=== PATIENT | female | born 1945 | race Caucasian/White ===

== ENCOUNTER 2019-07-01 11:18 | Outpatient (CLI) | payer MEDICARE, SELFPAY ==
[2019-07-01 11:59] LABS: Add Urine Microscopic? NO; Appearance Urine Clear (Clear); Bilirubin Urine Negative (Negative); Blood Urine Negative (Negative); Color Urine Yellow (Yellow); Glucose Urine UA Negative (Negative); Ketones Urine Negative (Negative); Leukocyte Esterase Ur Negative (Negative); Nitrate Urine Negative (Negative); Protein Urine Negative (Negative); Specific Grav Ur 1.015 (1.010-1.020); Urobilinogen Urine 0.2 mg/dL (0.2-1.0); pH Urine 5.5 (5.0-8.0)
[2019-07-01 12:02] LABS: Hemoglobin A1C 6.7 % (<5.7)
[2019-07-01 12:02] LABS: Creatinine Urine 51.33 mg/dL (40-278); MALB Creatinine Ratio 12.4 mg/g (0-30); Microalbumin Urine Random 6.4 mg/L
[2019-07-01 12:59] LABS: Alanine Aminotransferase 23 U/L (14-59); Albumin Level 4.2 g/dL (3.4-5.0); Alkaline Phosphatase 66 U/L (46-116); Anion Gap 13.4 mmol/L (7-16); Aspartate Amino Transferase 17 U/L (15-37); Bilirubin,Total 0.3 mg/dL (0.00-1.00); Blood Urea Nitrogen 19 mg/dL (7-18); Calcium 9.3 mg/dL (8.5-10.1); Carbon Dioxide 29 mmol/L (21-32); Chloride 103 mmol/L (98-108); Cholesterol 161 mg/dL (0-200); Estimated Glomerular Filt Rate 52; Free T3 2.58 pg/mL (2.18-3.98); Free T4 Free Thyroxine 1.06 ng/dL (0.76-1.46); Glucose 69 mg/dL (70-99); HDL Direct 64 mg/dL (40-60); LDL Cholesterol Calculated 78 mg/dL (<130); Osmolality Calculated 292 mOsm/kg (285-295); Potassium 4.4 mmol/L (3.5-5.1); Sodium 141 mmol/L (136-145); Thyroid Stimulating Hormone 4.02 uIU/mL (0.36-3.74); Total Protein 7.1 g/dL (6.4-8.2); Triglycerides 93 mg/dL (0-150)
[2019-07-03 09:48] LABS: Vitamin D 25 Hydroxy 59 ng/mL (30-100)
== END 2019-07-01 11:19 | disposition home or self-care (01) ==
PROVIDERS: PCP Internal Medicine; Visit Provider Internal Medicine
DX: E11.65 Type 2 diabetes mellitus with hyperglycemia (principal); I10 Essential (primary) hypertension; E03.4 Atrophy of thyroid (acquired); E78.2 Mixed hyperlipidemia; M81.0 Age-related osteoporosis without current pathological fracture
CPT/HCPCS: 36415; 80053; 80061; 81003; 82043; 82306; 83036; 84439; 84443; 84481

== ENCOUNTER 2019-08-21 15:51 | Outpatient (CLI) | payer MEDICARE, SELFPAY ==
--- NOTE | ~2019-08-21 | XR_ITS ---
EXAMINATION: XR lumbar spine 2-3V EXAM DATE: 08/21/2019 16:16 INDICATION: Acute lumbar radiculopathy, pain shooting down right leg. TECHNIQUE: Lumber spine frontal, lateral, lateral L5-S1 projections for interpretation. Comparison is made to prior examination from 04/25/2018. FINDINGS: There is moderate disc disease from T11 through L2. There is 5 mm retrolisthesis L1 on L2 and 4 mm retrolisthesis T12 on L1. No spondylolysis. There is bulky lumbar facet arthropathy. Mild to moderate disc disease at L5-S1, mild from L2 through L5. Sacrum, sacroiliac joints, sacral arcuate l christina are intact. Probable mild interval progression compared to 2018. IMPRESSION: 1. Severe lumbar facet arthropathy. 2. Moderate thoracolumbar disc disease. Reviewed, dictated and finalized at location A.
== END 2019-08-21 15:52 | disposition home or self-care (01) ==
LOC: CHSIMG 15:56
PROVIDERS: PCP Internal Medicine; Visit Provider Internal Medicine
DX: M54.16 Radiculopathy, lumbar region (principal)
CPT/HCPCS: 72100

== ENCOUNTER 2019-08-31 07:42 | Outpatient (CLI) | payer MEDICARE, SELFPAY ==
--- NOTE | ~2019-08-31 | MR_ITS ---
EXAMINATION: MR lumbar spine wo con DATE: 08/31/2019 10:30 INDICATION: Lumbar radiculopathy. TECHNIQUE: Magnetic resonance imaging (MRI) of the lumbar spine was performed without intravenous con trast. Sequences included sagittal T2-weighted FSE, sagittal T2-weighted FS FSE, sagittal T1-weighted FSE, and axial T2-weighted FSE. COMPARISON: Lumbar spine radiographs 08/21/2019 FINDINGS: There is 3 mm retrolisthesis of T12 on L1, 4 mm retrolisthesis of L1 on L2, and 3 mm vivian listhesis of L3 on L4 and L4 on L5. Vertebral body heights are normal. There is severely decreased di sc height at T11-T12, moderately decreased disc height at T12-L1 and L1-L2, and mildly decreased disc height at L5-S1. The distal spinal cord signal intensity is normal. The conus medullaris is at L1-L2 . The following disc levels are specifically discussed: L1-L2: The disc is bulging and has an annular fissure. There is no facet joint osteoarthritis. There is moderate bilateral neural foraminal stenosis. There is mild central canal stenosis. L2-L3: The disc is bulging. There is no facet joint osteoarthritis. There is mild bilateral neural fo raminal stenosis. There is no central canal stenosis. L3-L4: The disc is bulging. There is severe bilateral facet joint osteoarthritis. There is mild bilat eral neural foraminal stenosis. There is moderate central canal stenosis. L4-L5: The disc is bulging. There is severe bilateral facet joint osteoarthritis. There is mild bilat eral neural foraminal stenosis. There is mild central canal stenosis. L5-S1: The disc is bulging and has an annular fissure. There is severe bilateral facet joint osteoart hritis. There is mild bilateral neural foraminal stenosis. There is no central canal stenosis. IMPRESSION: 1. Moderate lumbar spondylosis and severe lower thoracic spondylosis. Reviewed, dictated and finalized at location A.
== END 2019-08-31 07:43 | disposition home or self-care (01) ==
LOC: CHSIMG 07:44
PROVIDERS: PCP Internal Medicine; Visit Provider Internal Medicine
DX: M54.16 Radiculopathy, lumbar region (principal)
CPT/HCPCS: 72148

== ENCOUNTER 2020-01-03 10:30 | Outpatient (CLI) | payer MEDICARE, SELFPAY ==
[2020-01-03 10:43] LABS: Add Urine Microscopic? NO; Appearance Urine Clear (Clear); Bilirubin Urine Negative (Negative); Blood Urine Negative (Negative); Color Urine Yellow (Yellow); Glucose Urine UA Negative (Negative); Ketones Urine Negative (Negative); Leukocyte Esterase Ur Negative LEU/UL (Negative); Nitrate Urine Negative (Negative); Protein Urine Negative (Negative); Urobilinogen Urine 0.2 mg/dL (0.2-1.0); pH Urine 5.5 (5.0-8.0)
[2020-01-03 10:56] LABS: Hemoglobin A1C 6.7 % (<5.7)
[2020-01-03 12:01] LABS: Alanine Aminotransferase 28 U/L (14-59); Albumin Level 4.1 g/dL (3.4-5.0); Alkaline Phosphatase 61 U/L (46-116); Anion Gap 10 mmol/L (8-16); Aspartate Amino Transferase 22 U/L (15-37); Bilirubin,Total 0.5 mg/dL (0.00-1.00); Blood Urea Nitrogen 23 mg/dL (7-18); Calcium 9.6 mg/dL (8.5-10.1); Carbon Dioxide 29 mmol/L (21-32); Chloride 102 mmol/L (98-108); Cholesterol 166 mg/dL (0-200); Estimated Glomerular Filt Rate 45; Free T3 2.33 pg/mL (2.18-3.98); Free T4 Free Thyroxine 1.15 ng/dL (0.76-1.46); Glucose 148 mg/dL (70-99); HDL Direct 61 mg/dL (40-60); LDL Cholesterol Calculated 80 mg/dL (<130); Osmolality Calculated 298 mOsm/kg (285-295); Potassium 4.3 mmol/L (3.5-5.1); Sodium 141 mmol/L (136-145); Thyroid Stimulating Hormone 2.37 uIU/mL (0.36-3.74); Total Protein 7.2 g/dL (6.4-8.2); Triglycerides 123 mg/dL (0-150)
== END 2020-01-03 10:31 | disposition home or self-care (01) ==
LOC: CHSLAB 10:32
PROVIDERS: PCP Internal Medicine; Visit Provider Internal Medicine
DX: E78.2 Mixed hyperlipidemia (principal); I10 Essential (primary) hypertension; E03.4 Atrophy of thyroid (acquired); E11.65 Type 2 diabetes mellitus with hyperglycemia
CPT/HCPCS: 36415; 80053; 80061; 81003; 83036; 84439; 84443; 84481

== ENCOUNTER 2020-01-06 08:52 | Outpatient (CLI) | payer MEDICARE, SELFPAY ==
--- NOTE | ~2020-01-06 | MM_ITS ---
EXAMINATION: MM screening [facility] BI w sandrine HISTORY: Screening mammogram TECHNIQUE: Craniocaudal and mediolateral oblique 3-D tomosynthesis images were obtained and synthetic 2-D images were generated. CAD analysis was submitted and interpreted. COMPARISON: 10/01/2018, 09/21/2017, 09/19/2016 bilateral digital screening mammogram examinations BREAST PARENCHYMAL COMPOSITION: There are scattered areas of fibroglandular density. Radiology FINDINGS: Stable circumscribed appearing bilateral breast masses with calcifications, likely calcifie d fibroadenomas.. Scattered numerous bilateral benign calcifications are again noted. There is no lolly dence of suspicious mass, calcification, or architectural distortion to suggest malignancy in either breast. There has been no suspicious interval change. IMPRESSION: 1. No mammographic evidence of malignancy. 2. Recommend routine screening mammography in one year. BI-RADS Category 2: Benign finding(s). Reviewed, dictated and finalized at location A.
== END 2020-01-06 08:53 | disposition home or self-care (01) ==
LOC: CHSIMG 08:55
PROVIDERS: PCP Internal Medicine; Visit Provider Obstetrics & Gynecology Gynecology
DX: Z12.31 Encounter for screening mammogram for malignant neoplasm of breast (principal)
CPT/HCPCS: 77063; 77067

== ENCOUNTER 2020-07-21 13:25 | Outpatient (CLI) | payer MEDICARE, SELFPAY ==
[2020-07-21 13:39] LABS: Appearance Urine Sl Cloudy (Clear); Bilirubin Urine Negative (Negative); Color Urine Yellow (Yellow); Glucose Urine UA Negative (Negative); Ketones Urine Negative (Negative); Leukocyte Esterase Ur Trace (Negative); Nitrate Urine Positive (Negative); Protein Urine Negative (Negative); Specific Grav Ur >= 1.030 (1.010-1.020); Urobilinogen Urine 0.2 mg/dL (0.2-1.0); pH Urine 5.5 (5.0-8.0)
[2020-07-21 13:43] LABS: Add Urine Microscopic? YES; Blood Urine Trace-Intact (Negative); RBC Urine 0-2 /hpf (0-2)
[2020-07-21 13:44] LABS: Bacteria Urine 2+ /hpf; Squamous Epithelial Cell Urine Few /hpf (Few)
[2020-07-21 13:55] LABS: Creatinine Urine 226.18 mg/dL (40-278); MALB Creatinine Ratio 8.6 mg/g (0-30); Microalbumin Urine Random 19.6 mg/L
[2020-07-21 13:59] LABS: Hemoglobin A1C 6.7 % (<5.7)
[2020-07-21 14:31] LABS: Alanine Aminotransferase 37 U/L (14-59); Albumin Level 4.2 g/dL (3.4-5.0); Alkaline Phosphatase 61 U/L (46-116); Anion Gap 9 mmol/L (8-16); Aspartate Amino Transferase 18 U/L (15-37); Bilirubin,Total 0.4 mg/dL (0.00-1.00); Blood Urea Nitrogen 24 mg/dL (7-18); Calcium 10.2 mg/dL (8.5-10.1); Carbon Dioxide 30 mmol/L (21-32); Chloride 101 mmol/L (98-108); Cholesterol 162 mg/dL (0-200); Estimated Glomerular Filt Rate 46; Free T3 2.02 pg/mL (2.18-3.98); Free T4 Free Thyroxine 1.01 ng/dL (0.76-1.46); Glucose 145 mg/dL (70-99); HDL Direct 54 mg/dL (40-60); LDL Cholesterol Calculated 80 mg/dL (<130); Osmolality Calculated 297 mOsm/kg (285-295); Potassium 3.9 mmol/L (3.5-5.1); Sodium 140 mmol/L (136-145); Thyroid Stimulating Hormone 2.67 uIU/mL (0.36-3.74); Total Protein 7.1 g/dL (6.4-8.2); Triglycerides 138 mg/dL (0-150)
[2020-07-23 22:23] LABS: Vitamin D 25 Hydroxy 50 ng/mL (30-100)
== END 2020-07-21 13:26 | disposition home or self-care (01) ==
LOC: CHSLAB 13:28
PROVIDERS: PCP Internal Medicine; Visit Provider Internal Medicine
DX: E03.9 Hypothyroidism, unspecified (principal); E11.9 Type 2 diabetes mellitus without complications; I10 Essential (primary) hypertension; E78.2 Mixed hyperlipidemia; M81.0 Age-related osteoporosis without current pathological fracture
CPT/HCPCS: 36415; 80053; 80061; 81001; 82043; 82306; 83036; 84439; 84443; 84481

== ENCOUNTER 2021-01-06 14:11 | Outpatient (CLI) | payer MEDICARE, SELFPAY ==
--- NOTE | ~2021-01-06 | MM_ITS ---
EXAMINATION: MM screening [facility] [place] w sandrine HISTORY: Screening mammogram TECHNIQUE: Craniocaudal and mediolateral oblique 3-D tomosynthesis images were obtained and synthetic 2-D images were generated. CAD analysis was submitted and interpreted. COMPARISON: 01/06/2020, 10/01/2018, 09/21/2017 BREAST PARENCHYMAL COMPOSITION: There are scattered areas of fibroglandular density. FINDINGS: Scattered benign-appearing calcifications are present. Also seen is a stable mass in the lo wer outer right breast. There is no evidence of suspicious mass, calcification, or architectural dist ortion to suggest malignancy in either breast. There has been no suspicious interval change. IMPRESSION: 1. No mammographic evidence of malignancy. 2. Recommend routine screening mammography in one year. BI-RADS Category 2: Benign finding(s). Reviewed, dictated and finalized at location A.
== END 2021-01-06 14:12 | disposition home or self-care (01) ==
LOC: CHSIMG 14:14
PROVIDERS: PCP Internal Medicine; Visit Provider Obstetrics & Gynecology Gynecology
DX: Z12.31 Encounter for screening mammogram for malignant neoplasm of breast (principal)
CPT/HCPCS: 77063; 77067

== ENCOUNTER 2021-01-27 09:54 | Outpatient (CLI) | payer MEDICARE, SELFPAY ==
[2021-01-27 10:21] LABS: Add Urine Microscopic? NO; Appearance Urine Clear (Clear); Basophils Absolute Auto 0.04 K/mm3 (0.00-0.10); Basophils Percent Auto 0.7 % (0.0-1.0); Bilirubin Urine Negative (Negative); Blood Urine Negative (Negative); Color Urine Light Yellow (Yellow); Eosinophils Absolute Auto 0.11 K/mm3 (0.02-0.50); Eosinophils Percent Auto 1.8 % (1.0-6.0); Glucose Urine UA Negative (Negative); Hematocrit 38.1 % (35.0-42.0); Hemoglobin 12.8 g/dL (11.7-13.8); Immature Granulocyte Absolute 0.02 K/mm3 (0.00-0.00); Immature Granulocyte Percent A 0.3 % (0.0-0.0); Ketones Urine Negative (Negative); Leukocyte Esterase Ur Negative (Negative); Lymphocytes Absolute Auto 1.84 K/mm3 (1.10-4.50); Lymphocytes Percent Auto 30.2 % (18.0-42.0); Mean Corpuscular HGB Conc 33.6 g/dL (32.0-36.0); Mean Corpuscular Hemoglobin 28.4 pg (27.0-31.0); Mean Corpuscular Volume 84.5 fL (78.0-102.0); Mean Platelet Volume 10.1 fl (9.2-11.8); Monocytes Absolute Auto 0.39 K/mm3 (0.10-0.90); Monocytes Percent Auto 6.4 % (2.0-11.0); Neutrophils Absolute Auto 3.7 K/mm3 (1.7-7.2); Neutrophils Percent Auto 60.6 % (50.0-70.0); Nitrate Urine Negative (Negative); Platelet Count Result 232 K/mm3 (150-420); Protein Urine Negative (Negative); Red Blood Count 4.51 M/mm3 (4.20-5.40); Red Cell Distribution Width 13.8 % (11.6-14.4); Urobilinogen Urine 0.2 mg/dL (0.2-1.0); White Blood Count 6.1 K/mm3 (4.8-10.8)
[2021-01-27 11:00] LABS: Alanine Aminotransferase 37 U/L (14-59); Albumin Level 4.1 g/dL (3.4-5.0); Alkaline Phosphatase 66 U/L (46-116); Anion Gap 11 mmol/L (8-16); Aspartate Amino Transferase 20 U/L (15-37); Bilirubin,Total 0.4 mg/dL (0.00-1.00); Blood Urea Nitrogen 19 mg/dL (7-18); Calcium 9.4 mg/dL (8.5-10.1); Carbon Dioxide 28 mmol/L (21-32); Chloride 102 mmol/L (98-108); Cholesterol 182 mg/dL (0-200); Estimated Glomerular Filt Rate 55; Free T3 2.25 pg/mL (2.18-3.98); Free T4 Free Thyroxine 1.04 ng/dL (0.76-1.46); Glucose 154 mg/dL (70-99); HDL Direct 53 mg/dL (40-60); LDL Cholesterol Calculated 102 mg/dL (<130); Osmolality Calculated 297 mOsm/kg (285-295); Potassium 4.1 mmol/L (3.5-5.1); Sodium 141 mmol/L (136-145); Thyroid Stimulating Hormone 3.28 uIU/mL (0.36-3.74); Total Protein 6.8 g/dL (6.4-8.2); Triglycerides 133 mg/dL (0-150)
[2021-01-29 20:42] LABS: Vitamin D 25 Hydroxy 52 ng/mL (30-100)
== END 2021-01-27 09:55 | disposition home or self-care (01) ==
LOC: CHSLAB 09:56
PROVIDERS: PCP Internal Medicine; Visit Provider Internal Medicine
DX: E03.4 Atrophy of thyroid (acquired) (principal); I10 Essential (primary) hypertension; E11.9 Type 2 diabetes mellitus without complications; E78.2 Mixed hyperlipidemia; M81.0 Age-related osteoporosis without current pathological fracture; N30.00 Acute cystitis without hematuria
CPT/HCPCS: 36415; 80053; 80061; 81003; 82306; 83036; 84439; 84443; 84481; 85025; 87086; 87088; 87186

== ENCOUNTER 2021-03-10 10:53 | Outpatient (CLI) | payer MEDICARE, SELFPAY ==
--- NOTE | ~2021-03-10 | DEXA_ITS ---
Bone Density Report Name: Karen Abdi Age: 76 Sex: Female Ethnicity: White Date of : 1945 Indication: hyperparathyroidism; parental hip fracture; height loss; Referring Provider: Estella Ovalles Study: Bone densitometry was performed. Exam Date: March 10, 2021 Accession number: [id number] Bone Density: Region BMD T-score Z-score Classification AP Spine(L1, L3, L4) 1.538 4.4 6.8 Normal Femoral Neck (Left) 1.033 1.7 3.7 Normal Total Hip (Left) 1.231 2.4 4.2 Normal Femoral Neck (Right) 0.981 1.2 3.3 Normal Total Hip (Right) 1.222 2.3 4.1 Normal Femoral Neck Mean 1.007 1.4 3.5 Normal Total Hip Mean 1.227 2.3 4.1 Normal World Health Organization criteria for BMD impression classify patients as: Normal (T-score at or above -1.0), Osteopenia (T-score between -1.0 and -2.5), or Osteoporosis (T-score at or below -2.5). 10-year Fracture Risk: FRAX not reported because: All T-scores for Spine Total, Hip Total, Femoral Neck at or above -1.0 Clinical Information Provided by Patient: Parent has had a hip fracture Has used the following medications: Calcium Has the following medical conditions: Hyperparathyroidism Patient maximum height was 65 Menopause Age: 54 No regular weight bearing exercise Onset of menses at age 14 Number of children 2 Impression: The patient has normal bone mass. The patient has risk factors, including: parental hip fracture. Discussion: LOW RISK OF FRACTURE; BONE DENSITY IS WELL ABOVE THE MINIMUM DESIRABLE LEVEL AND ABOVE AVERAGE FOR AGE AND SEX AT ALL SKELETAL SITES TESTED. This person's bone density is above expected limits for age and sex. This is rarely clinically significant, but should be pursued if there are significant musculoskeletal complaints. The patient should follow a healthful lifestyle (good nutrition with adequate calcium and vitamin D, and appropriate weight-bearing exercise). Follow-Up: Consider repeating this study in 5 years or sooner if there is some new clinical indication. Reported by: Dr. Morris Andrews on 03/10/2021 11:31:00 AM. Reviewed, dictated and finalized at location A. [facility]
== END 2021-03-10 10:54 | disposition home or self-care (01) ==
LOC: CHSIMG 10:54
PROVIDERS: PCP Internal Medicine; Visit Provider Internal Medicine
DX: M81.0 Age-related osteoporosis without current pathological fracture (principal)
CPT/HCPCS: 77080

== ENCOUNTER 2021-08-17 09:49 | Outpatient (CLI) | payer MEDICARE, SELFPAY ==
[2021-08-17 10:06] LABS: Appearance Urine Sl Cloudy (Clear); Bilirubin Urine Negative (Negative); Color Urine Yellow (Yellow); Glucose Urine UA Negative (Negative); Ketones Urine Negative (Negative); Leukocyte Esterase Ur Negative (Negative); Nitrate Urine Positive (Negative); Protein Urine Negative (Negative); Specific Grav Ur 1.025 (1.010-1.020); Urobilinogen Urine 0.2 mg/dL (0.2-1.0)
[2021-08-17 10:10] LABS: Add Urine Microscopic? YES; Bacteria Urine 4+ /hpf; Blood Urine Trace-Intact (Negative); RBC Urine 0-2 /hpf (0-2); Squamous Epithelial Cell Urine Rare /hpf (Few)
[2021-08-17 10:12] LABS: Creatinine Urine 133.22 mg/dL (40-278); MALB Creatinine Ratio 9.7 mg/g (0-30); Microalbumin Urine Random < 13.0 mg/L
[2021-08-17 10:15] LABS: Hemoglobin A1C 6.8 % (<5.7)
[2021-08-17 10:51] LABS: Alanine Aminotransferase 36 U/L (14-59); Alkaline Phosphatase 57 U/L (46-116); Anion Gap 9 mmol/L (8-16); Aspartate Amino Transferase 22 U/L (15-37); Bilirubin,Total 0.4 mg/dL (0.00-1.00); Blood Urea Nitrogen 22 mg/dL (7-18); Calcium 9.3 mg/dL (8.5-10.1); Carbon Dioxide 30 mmol/L (21-32); Chloride 101 mmol/L (98-108); Cholesterol 162 mg/dL (0-200); Creatine Kinase 74 U/L (26-192); Estimated Glomerular Filt Rate 51; Free T3 2.56 pg/mL (2.18-3.98); Free T4 Free Thyroxine 0.99 ng/dL (0.76-1.46); Glucose 134 mg/dL (70-99); HDL Direct 60 mg/dL (40-60); LDL Cholesterol Calculated 71 mg/dL (<130); Osmolality Calculated 295 mOsm/kg (285-295); Potassium 4.3 mmol/L (3.5-5.1); Sodium 140 mmol/L (136-145); Thyroid Stimulating Hormone 3.77 uIU/mL (0.36-3.74); Total Protein 6.7 g/dL (6.4-8.2); Triglycerides 154 mg/dL (0-150)
[2021-08-19 15:06] LABS: Vitamin D 25 Hydroxy 53 ng/mL (30-100)
== END 2021-08-17 09:50 | disposition home or self-care (01) ==
LOC: CHSLAB 09:51
PROVIDERS: PCP Internal Medicine; Visit Provider Internal Medicine
DX: E03.4 Atrophy of thyroid (acquired) (principal); I10 Essential (primary) hypertension; E78.2 Mixed hyperlipidemia; E11.9 Type 2 diabetes mellitus without complications; M81.0 Age-related osteoporosis without current pathological fracture
CPT/HCPCS: 36415; 80053; 80061; 81001; 82043; 82306; 82550; 83036; 84439; 84443; 84481

== ENCOUNTER 2022-01-07 12:31 | Outpatient (CLI) | payer MEDICARE, SELFPAY ==
--- NOTE | ~2022-01-07 | MM_ITS ---
EXAMINATION: MM screening [facility]do BI w sandrine HISTORY: Screening mammogram TECHNIQUE: Craniocaudal and mediolateral oblique 3-D tomosynthesis images were obtained and synthetic 2-D images were generated. CAD analysis was submitted and interpreted. COMPARISON: 01/06/2021, 01/06/2020, 10/01/2018 bilateral screening mammogram examinations BREAST PARENCHYMAL COMPOSITION: There are numerous benign calcifications scattered throughout both br easts.. FINDINGS: There is no evidence of suspicious mass, calcification, or architectural distortion to sugg est malignancy in either breast. There has been no suspicious interval change. IMPRESSION: 1. No mammographic evidence of malignancy. 2. Recommend routine screening mammography in one year. BI-RADS Category 2: Benign finding(s). Reviewed, dictated and finalized at location A.
== END 2022-01-07 12:32 | disposition home or self-care (01) ==
PROVIDERS: PCP Internal Medicine; Visit Provider Internal Medicine
DX: Z12.31 Encounter for screening mammogram for malignant neoplasm of breast (principal)
CPT/HCPCS: 77063; 77067

== ENCOUNTER 2022-03-17 11:31 | Outpatient (CLI) | payer MEDICARE, SELFPAY ==
[2022-03-17 11:51] LABS: Basophils Absolute Auto 0.06 K/mm3 (0.00-0.10); Basophils Percent Auto 0.9 % (0.0-1.0); Eosinophils Absolute Auto 0.13 K/mm3 (0.02-0.50); Eosinophils Percent Auto 1.9 % (1.0-6.0); Hematocrit 40.4 % (35.0-42.0); Hemoglobin 13.5 g/dL (11.7-13.8); Immature Granulocyte Absolute 0.01 K/mm3 (0.00-0.00); Immature Granulocyte Percent A 0.1 % (0.0-0.0); Lymphocytes Percent Auto 35.8 % (18.0-42.0); Mean Corpuscular HGB Conc 33.4 g/dL (32.0-36.0); Mean Corpuscular Hemoglobin 29.2 pg (27.0-31.0); Mean Corpuscular Volume 87.4 fL (78.0-102.0); Mean Platelet Volume 9.8 fl (9.2-11.8); Neutrophils Absolute Auto 3.7 K/mm3 (1.7-7.2); Neutrophils Percent Auto 55.3 % (50.0-70.0); Platelet Count Result 280 K/mm3 (150-420); Red Blood Count 4.62 M/mm3 (4.20-5.40); Red Cell Distribution Width 13.6 % (11.6-14.4); White Blood Count 6.7 K/mm3 (4.8-10.8)
[2022-03-17 11:52] LABS: Appearance Urine Clear (Clear); Bilirubin Urine Negative (Negative); Glucose Urine UA Negative (Negative); Ketones Urine Negative (Negative); Leukocyte Esterase Ur Trace (Negative); Nitrate Urine Positive (Negative); Protein Urine Negative (Negative); Specific Grav Ur >= 1.030 (1.010-1.020); Urobilinogen Urine 0.2 mg/dL (0.2-1.0)
[2022-03-17 11:59] LABS: Microalbumin Urine Random 17.9 mg/L
[2022-03-17 12:08] LABS: Add Urine Microscopic? YES; Blood Urine Trace-Intact (Negative); Color Urine Light Yellow (Yellow)
[2022-03-17 12:10] LABS: RBC Urine None seen /hpf (0-2); Squamous Epithelial Cell Urine Few /hpf (Few)
[2022-03-17 12:11] LABS: Bacteria Urine 3+ /hpf
[2022-03-17 12:42] LABS: Hemoglobin A1C 6.7 % (<5.7)
[2022-03-17 13:15] LABS: Alanine Aminotransferase 23 U/L (14-59); Albumin Level 4.5 g/dL (3.4-5.0); Alkaline Phosphatase 75 U/L (46-116); Anion Gap 5 mmol/L (8-16); Aspartate Amino Transferase 15 U/L (15-37); Bilirubin,Total 0.5 mg/dL (0.00-1.00); Blood Urea Nitrogen 30 mg/dL (7-18); Calcium 9.8 mg/dL (8.5-10.1); Carbon Dioxide 33 mmol/L (21-32); Chloride 101 mmol/L (98-108); Cholesterol 175 mg/dL (0-200); Creatine Kinase 77 U/L (26-192); Estimated Glomerular Filt Rate 48; Free T3 2.27 pg/mL (2.18-3.98); Free T4 Free Thyroxine 1.12 ng/dL (0.76-1.46); Glucose 132 mg/dL (70-99); HDL Direct 59 mg/dL (40-60); LDL Cholesterol Calculated 86 mg/dL (<130); Osmolality Calculated 296 mOsm/kg (285-295); Potassium 5.3 mmol/L (3.5-5.1); Sodium 139 mmol/L (136-145); Thyroid Stimulating Hormone 2.66 uIU/mL (0.36-3.74); Total Protein 7.3 g/dL (6.4-8.2); Triglycerides 149 mg/dL (0-150)
== END 2022-03-17 11:32 | disposition home or self-care (01) ==
LOC: CHSLAB 11:33
PROVIDERS: PCP Internal Medicine; Visit Provider Internal Medicine
DX: E03.4 Atrophy of thyroid (acquired) (principal); I10 Essential (primary) hypertension; E78.2 Mixed hyperlipidemia; E11.65 Type 2 diabetes mellitus with hyperglycemia; M81.0 Age-related osteoporosis without current pathological fracture
CPT/HCPCS: 36415; 80053; 80061; 81001; 82043; 82550; 83036; 84439; 84443; 84481; 85025; 88112

== ENCOUNTER 2022-03-30 16:54 | Outpatient (CLI) | payer MEDICARE, SELFPAY ==
--- NOTE | ~2022-03-30 | XR_ITS ---
XR chest 2V DATE: 03/30/2022 17:24 INDICATION: Wheezing TECHNIQUE: 2 views COMPARISON: 06/07/2019 PA and lateral chest FINDINGS: Normal heart size. 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 No pulmonary infiltrate or consolidation, pleural effusion or pulmonary vascular congest ion or pneumothorax. IMPRESSION: No active cardiopulmonary disease Reviewed, dictated and finalized at location A. [employer]
== END 2022-03-30 16:55 | disposition home or self-care (01) ==
LOC: CHSIMG 16:56
PROVIDERS: PCP Internal Medicine; Visit Provider Internal Medicine
DX: R06.2 Wheezing (principal)
CPT/HCPCS: 71046

== ENCOUNTER 2022-08-15 20:57 | Observation (INO) | payer MEDICARE, SELFPAY ==
--- NOTE | ~2022-08-15 | XR_ITS ---
EXAMINATION: XR knee LT min 4V DATE: 08/15/2022 22:35 INDICATION: Left knee pain TECHNIQUE: Four views of the left knee were obtained. COMPARISON: None. FINDINGS: Alignment is normal. No fracture or osteochondral lesion. Joint spaces are normal with no e rosions. No joint effusion/synovitis. There is marked infrapatellar anterior and medial soft tissue swelling of the knee. IMPRESSION: 1. Marked soft tissue swelling without acute osseous abnormality. Reviewed, dictated and finalized at location F.
--- NOTE | ~2022-08-15 | CT_ITS ---
EXAMINATION: CT brain wo con DATE: 08/16/2022 08:01 INDICATION: Intracranial hemorrhage. Head injury. TECHNIQUE: Computed tomography (CT) of the head was performed without intravenous contrast. The mA wa s adjusted according to patient size. Iterative reconstruction technique was employed. The dose-lengt h product was 681.00 mGy-cm. COMPARISON: Head CT 08/15/2022 FINDINGS: There are scattered areas of low attenuation in the cerebral white matter. There are hyperd ensities in the sulci in the medial frontal lobes bilaterally, consistent with acute subarachnoid hem orrhage. There is no acute ischemic infarct or abnormal mass lesion. The ventricles are normal in siz e. The paranasal sinuses are clear. The mastoid air cells are normal. There is posterior superior sca lp soft tissue swelling. IMPRESSION: 1. Stable small volume of acute subarachnoid hemorrhage in the sulci of the medial frontal lobes. 2. Stable extensive nonspecific cerebral white matter disease, which likely represents chronic small vessel ischemic disease. Reviewed, dictated and finalized at location A. IMPRESSION: 1. Stable small volume of acute subarachnoid hemorrhage in the sulci of the med ial frontal lobes. 2. Stable extensive nonspecific cerebral white matter disease, which likely rep resents chronic small vessel ischemic disease.
--- NOTE | ~2022-08-15 | CT_ITS ---
EXAMINATION: CT brain wo con INDICATION: Head injury COMPARISON: None TECHNIQUE: Standard unenhanced head CT. The dose-length product (DLP) was 605.33 mGy-cm. The mA was a djusted according to patient size. Iterative reconstruction technique was employed. FINDINGS: There are two small areas of parafalcine hyperdensity. There is no acute intraparenchymal h emorrhage. No evidence of mass lesion. No evidence of acute infarction. There is moderate periventric ular and subcortical hypodensity probably related to small vessel ischemic disease. There is mild pro minence of the sulci and ventricles related to cerebral atrophy. There is no mass effect or midline s hift. The orbits and soft tissues are unremarkable. The visualized sinuses and mastoid air cells are well aerated. IMPRESSION: 1. Two small parafalcine hyperdensities which could reflect tiny subdural hematomas. 2. Age related findings. These findings were discussed with Dr. Octavio Bentley MD in the Emergency Department at 1057 hours on 08/15/2022. Reviewed, dictated and finalized at location F. IMPRESSION: 1. Two small parafalcine hyperdensities which could reflect tiny subdural hemat omas. 2. Age related findings. These findings were discussed with Dr. Octavio Bentley MD in the Emergency De partment at 1057 hours on 08/15/2022.
--- NOTE | 2022-08-15 21:27 | ED.FALL ---
HPI - Fall General Chief Complaint: Fall Stated Complaint: I fell and hit the back of my head and cut my left leg History of Present Illness HPI Narrative: 77-year-old white female was walking through a doorway, She turned, and tripped over a threshold and fell, landing on her left knee, got up, and fell backwards striking the back of her head. she had no loss of consciousness, but her friend who witnessed it reports she had her head pretty hard. she denies any confusion, headache, visual change, and pain back pain, denies any extremity pain today her left knee. Denies any shortness of breath, abdominal pain, nausea or vomiting. Related Data Home Medications Medication Instructions Recorded Confirmed aspirin 81 mg tablet,delayed 81 mg PO DAILY 07/08/19 08/15/22 release (Adult Low Dose Aspirin) bupropion HCl 150 mg 24 hr tablet, 150 mg PO DAILY 07/08/19 08/15/22 extended release citalopram 40 mg tablet 20 mg PO DAILY 07/08/19 08/15/22 glipizide 10 mg tablet 10 mg PO DAILY 07/08/19 08/15/22 levothyroxine 50 mcg tablet 50 mcg PO DAILY 07/08/19 08/15/22 losartan 100 mg tablet 100 mg PO DAILY 07/08/19 08/15/22 metformin 500 mg tablet,extended 1,000 mg PO BID 07/08/19 08/15/22 release 24 hr multivitamin 1 tablet PO DAILY 07/08/19 08/15/22 simvastatin 10 mg tablet 10 mg PO .3 times weekly 07/16/19 08/15/22 calcium carb-ergocalciferol (vit See Rx Instructions .Route .COMPLEX 08/15/22 08/15/22 D2) 500 mg (1,250 mg)-200 unit tablet omega 2-qsn-dpm-fish oil 1,000 mg 1 cap PO DAILY 08/15/22 08/15/22 (120 mg-180 mg) capsule (Fish Oil) simvastatin 10 mg tablet 10 mg PO TID 08/15/22 08/15/22 Allergies Allergy/AdvReac Type Severity Reaction Status Date / Time No Known Allergies Allergy Verified 08/15/22 21:21 Review of Systems Review of Systems: Patient denies any recent fever, chills, sore throat, cough, chest pain, shortness he shortness of breath, near-syncope or syncope. Denies any recent abdominal pain, nausea vomiting, diarrhea constipation, dysuria urgency or frequency. Review of systems is negative except as noted above in HPI [facility] Past Medical History Medical History Diabetes 1.5, managed as type 2 CUETO (dyspnea on exertion) Dyslipidemia Essential hypertension Surgical History Surgical History History of right knee joint replacement Family History Family History Mother Patient's mother is , Onset Age: 94 Family history of malignant neoplasm of thyroid, Onset Age: 72 Social History Social History Smoking status: Never smoker Exam Narrative: pleasant, smiling, good historian, engaging Const: General: healthy appearing, no acute distress and alert Nutritional Appearance: well nourished Orientation/consciousness: patient oriented x3 HENMT: Head: normal to inspection ( except at the left posterior occipital aspect there is a small abrasion,) Face and sinus: normal facial exam and sinuses nontender Mouth: Yes Normal oral and palatal mucosa present, Yes lip normal and Yes moist mucous membranes Eyes: Conjunctivae: conjunctivae normal Pupils: Equal, round and reactive pupils present EOM: EOMs intact bilaterally Neck: Neck: normal visual inspection Other: nontender, good range of motion for age Chest: Other: nontender Resp: Effort & Inspection: normal respiratory effort Auscultation: clear to auscultation bilaterally Cardio: Rate: regular rate Rhythm: regular rhythm Heart sounds: Murmur heart sound present GI: Inspection: non-distended Other: abdomen is not tender, no fashion tenderness, rebound tenderness, no masses, no organomegaly Back/Spine/Pelvis: Other: has no neck or back tenderness Skin: General skin exam: normal color Other:
[2022-08-15 21:40] VITALS: BP 133/79; PULSE 103; RESP 18; TEMP 36.8; O2SAT 96
[2022-08-16] MEDS: LACTATED RINGERS 1,000 ML 100 ML IV CONT (01:05)
--- NOTE | 2022-08-16 01:12 | PC.NURSE ---
called second for to give report, receiving nurse with another pt, will call ER when available.
--- NOTE | 2022-08-16 01:17 | PC.NURSE ---
nurse to nurse completed with ALEJO Cunningham.
[2022-08-16 01:40] VITALS: BP 129/67; PULSE 98; RESP 17; TEMP 36.5; O2SAT 95
[2022-08-16 01:44] VITALS: BMI 31.6
--- NOTE | 2022-08-16 02:51 | ADMGEN ---
This patient, Karen Abdi, was admitted to 2nd Floor Room 210-1. Patient was oriented to hospital policies and general routines including ID bracelet, bed and alarms, pain management, procedures, bathroom and other care routines, personal items, smoking policy, room service/diet, and visiting hours. Information on how to activate the Rapid Response Team has been discussed. Patient is encouraged to report perceived risks to care and to ask questions if she do not understand what she is told or what she should do.
[2022-08-16 04:00] VITALS: BP 156/72; PULSE 88; RESP 16; TEMP 36.4; O2SAT 97
[2022-08-16 08:00] VITALS: BP 135/68; PULSE 107; RESP 18; TEMP 36.1; O2SAT 94
[2022-08-16 08:25] LABS: Glucose Point of Care 100 mg/dl (65-105)
[2022-08-16 08:54] LABS: Hematocrit 33.2 % (35.0-42.0); Hemoglobin 11.4 g/dL (11.7-13.8); Mean Corpuscular HGB Conc 34.3 g/dL (32.0-36.0); Mean Corpuscular Hemoglobin 29.8 pg (27.0-31.0); Mean Corpuscular Volume 86.7 fL (78.0-102.0); Mean Platelet Volume 9.7 fl (9.2-11.8); Platelet Count Result 229 K/mm3 (150-420); Red Blood Count 3.83 M/mm3 (4.20-5.40); Red Cell Distribution Width 13.8 % (11.6-14.4); White Blood Count 8.1 K/mm3 (4.8-10.8)
[2022-08-16 09:09] LABS: Alanine Aminotransferase 27 U/L (14-59); Albumin Level 3.7 g/dL (3.4-5.0); Alkaline Phosphatase 64 U/L (46-116); Anion Gap 9 mmol/L (8-16); Aspartate Amino Transferase 22 U/L (15-37); Bilirubin,Total 0.5 mg/dL (0.00-1.00); Blood Urea Nitrogen 20 mg/dL (7-18); Calcium 8.8 mg/dL (8.5-10.1); Carbon Dioxide 30 mmol/L (21-32); Chloride 103 mmol/L (98-108); Estimated CRCL calculation 44 ml/min; Estimated Glomerular Filt Rate 56; Glucose 200 mg/dL (70-99); Osmolality Calculated 302 mOsm/kg (285-295); Potassium 4.1 mmol/L (3.5-5.1); Sodium 142 mmol/L (136-145); Total Protein 6.7 g/dL (6.4-8.2)
--- NOTE | 2022-08-16 09:53 | PM.SD2 ---
Same Day Admit/Disch: HPI History of Present Illness Chief complaint: CLOSED HEAD INJURY Narrative: Karen Abdi is a 77 year old female who presented to arm urgency department yesterday status post mechanical fall and head trauma. Patient has history of diabetes type 1 dyslipidemia hypertension hypothyroidism. According to patient she had a mechanical fall yesterday and skinned her left knee, after tempting to look at her left knee she then fell backwards and hit the back of her head. Patient does and I any loss consciousness, lightheadedness, dizziness, confusion, visual disturbance,AMS at the time the fall or currently. There was no labs drawn on admission vital signs 133/79, heart rate 103, respiratory rate 18, temperature 36.8?, sats 96% on room air, CT of the head indicates ?Two small parafalcine hyperdensities which could reflect tiny subdural hematomas. repeat CT of the head is unchanged. according to emergency room doctor neurosurgeon was called and felt that patient should be observed overnight if no change it is safe for patient to go home per ER doctor. patient will discharge home today she does not appear to be in any distress and she agrees with discharge. The patient denies SOB, CP, palpitation, extremity numbness, lightheadedness, dizziness, constipation, diarrhea, chills, or fever. patient does have a little discomfort to to the back of her head on the right side and tenderness to her left knee. [facility] Past Medical History Medical History Diabetes 1.5, managed as type 2 CUETO (dyspnea on exertion) Dyslipidemia Essential hypertension Surgical History Surgical History History of right knee joint replacement Family History Family History Mother Patient's mother is , Onset Age: 94 Family history of malignant neoplasm of thyroid, Onset Age: 72 Social History Social History Smoking packs per day: 1 Smoking cigarettes per day: 20.0 Years smoked: 30 Smoking pack-years: 30.00 Smoking status: Former smoker Tobacco type: cigarettes Alcohol intake: never Substance use: never Substance use type: does not use Lack of Transportation: No Lack of Food: Never True Current Housing: I Have Housing Concerned About Future Housing: No Difficulty Paying Gas/Electric Bills: No Difficulty Paying for Meds: No Currently Unemployed: No Education: Associate Degree Difficulty w/ Childcare or Family Care: No Spiritual care concerns: No Same Day Admit/Disch: Med Pre-admit Medications Home Medications Medication Instructions Recorded Confirmed Type aspirin 81 mg tablet,delayed 81 mg PO DAILY 07/08/19 08/15/22 History release (Adult Low Dose Aspirin) citalopram 40 mg tablet 40 mg PO DAILY 07/08/19 08/16/22 History levothyroxine 50 mcg tablet See Rx Instructions .Route .COMPLEX 07/08/19 08/16/22 History metformin 500 mg tablet,extended 1,000 mg PO BID 07/08/19 08/15/22 History release 24 hr multivitamin 1 tablet PO DAILY 07/08/19 08/15/22 History calcium carb-ergocalciferol (vit See Rx Instructions .Route .COMPLEX 08/15/22 08/15/22 History D2) 500 mg (1,250 mg)-200 unit tablet omega 1-meq-ebk-fish oil 1,000 mg 1 cap PO DAILY 08/15/22 08/15/22 History (120 mg-180 mg) capsule (Fish Oil) bupropion HCl 150 mg tablet,12 hr 150 mg PO BID 08/16/22 08/16/22 History sustained-release glipizide 10 mg tablet, extended 10 mg PO QAM 08/16/22 08/16/22 History release 24 hr losartan 100 1 tablet PO DAILY 08/16/22 08/16/22 History mg-hydrochlorothiazide 25 mg tablet Exam Narrative: GENERAL: This is a well-nourished, well-developed patient, in no apparent distress. HEAD: normocephalic, atraumatic. EYES: PERRL. Sclera clear/white. Vision is grossly int
[2022-08-16] MEDS: CITALOPRAM HYDROBROMIDE 20 MG TABLET 40 MG PO (10:19)
[2022-08-16] MEDS: buPROPion HCL SR (12 HR) 150 MG TAB PO (10:19)
[2022-08-16] MEDS: hydroCHLOROthiazide 25 MG TABLET PO (10:20)
[2022-08-16] MEDS: glipiZIDE XL 5 MG TABCR 10 MG PO (10:20)
[2022-08-16] MEDS: MULTIVITAMINS THERAPEUTIC TAB (*BKC) 1 TABLET PO (10:20)
[2022-08-16] MEDS: LOSARTAN POTASSIUM 50 MG TABLET 100 MG PO (10:20)
--- NOTE | 2022-08-16 11:00 | PC.NURSE ---
Discharge instructions reviewed with patient and son. All questions answered. Pt transported via wheelchair to front of hospital and assisted into private vehicle.
--- NOTE | 2022-08-17 12:57 | PC.NURSE ---
Pt states she received and understood her discharge instructions. Pt states her care was very good .
== END 2022-08-16 11:00 | disposition home or self-care (01) ==
LOC: CHSED 08-16 01:00 → CHS2ND 08-16 01:40
PROVIDERS: Nurse Practitioner; Admitting Provider Internal Medicine; Emergency Provider Emergency Medicine; PCP Internal Medicine; Visit Provider Internal Medicine
DX: S06.5X0A Traumatic subdural hemorrhage without loss of consciousness, initial encounter (principal); S80.02XA Contusion of left knee, initial encounter; I10 Essential (primary) hypertension; E13.9 Other specified diabetes mellitus without complications; E78.5 Hyperlipidemia, unspecified; Z96.651 Presence of right artificial knee joint; Z79.82 Long term (current) use of aspirin; W01.0XXA Fall on same level from slipping, tripping and stumbling without subsequent striking against object, initial encounter; W18.09XA Striking against other object with subsequent fall, initial encounter; Z87.891 Personal history of nicotine dependence
CPT/HCPCS: 36415; 70450; 73564; 80053; 82948; 85027; 96360; 96361; 99285; A9270; G0378; J7120

== ENCOUNTER 2022-08-23 13:53 | Outpatient (CLI) | payer MEDICARE, SELFPAY ==
--- NOTE | ~2022-08-23 | CT_ITS ---
EXAMINATION: CT brain wo con DATE: 08/23/2022 14:04 INDICATION: Traumatic subdural hemorrhage follow-up TECHNIQUE: Computed tomography (CT) of the head was performed without intravenous contrast. The mA wa s adjusted according to patient size. Iterative reconstruction technique was employed. Exam dose: 60 5.33 mGy-cm total exam DLP. COMPARISON: 08/08/2022 CDT 08/15/2022 CT brain FINDINGS: Small Small anterior parafalcine hyperdensities reported on 08/15/2022 have nearly completely resolved since 08/15/2022, consistent with small areas of hemorrhage. No intracranial mass lesion, midline shift or mass effect. There is intracranial cerebral atheroscler osis. There is nonspecific diminished attenuation of the cerebral white matter, likely due to chronic small vessel ischemic changes. No new subdural or epidural hematoma. No fracture or bone destruction of the cranial vault. The mastoid air cells and included paranasal sinuses are unremarkable. IMPRESSION: Improvement of small anterior parafalcine hyperdensities suggesting improvement of small bilateral hemorrhages Reviewed, dictated and finalized at [facility]. Reviewed, dictated and finalized at [facility]. IMPRESSION: Improvement of small anterior parafalcine hyperdensities suggestin g improvement of small bilateral hemorrhages
== END 2022-08-23 13:54 | disposition home or self-care (01) ==
LOC: CHSIMG 13:55
PROVIDERS: PCP Internal Medicine; Visit Provider Nurse Practitioner
DX: S06.5XAA Traumatic subdural hemorrhage with loss of consciousness status unknown, initial encounter (principal)
CPT/HCPCS: 70450

== ENCOUNTER 2022-10-07 11:45 | Outpatient (CLI) | payer MEDICARE, SELFPAY ==
[2022-10-07 11:59] LABS: Appearance Urine Clear (Clear); Basophils Absolute Auto 0.05 K/mm3 (0.00-0.10); Basophils Percent Auto 0.7 % (0.0-1.0); Bilirubin Urine Negative (Negative); Blood Urine Negative (Negative); Color Urine Light Yellow (Yellow); Eosinophils Absolute Auto 0.09 K/mm3 (0.02-0.50); Eosinophils Percent Auto 1.3 % (1.0-6.0); Glucose Urine UA Negative (Negative); Hematocrit 39.6 % (35.0-42.0); Hemoglobin 13.2 g/dL (11.7-13.8); Immature Granulocyte Absolute 0.02 K/mm3 (0.00-0.00); Immature Granulocyte Percent A 0.3 % (0.0-0.0); Ketones Urine Negative (Negative); Leukocyte Esterase Ur Negative (Negative); Lymphocytes Absolute Auto 2.02 K/mm3 (1.10-4.50); Mean Corpuscular HGB Conc 33.3 g/dL (32.0-36.0); Mean Corpuscular Hemoglobin 29.3 pg (27.0-31.0); Mean Platelet Volume 9.8 fl (9.2-11.8); Monocytes Absolute Auto 0.41 K/mm3 (0.10-0.90); Monocytes Percent Auto 6.1 % (2.0-11.0); Neutrophils Absolute Auto 4.2 K/mm3 (1.7-7.2); Neutrophils Percent Auto 61.6 % (50.0-70.0); Nitrate Urine Negative (Negative); Platelet Count Result 259 K/mm3 (150-420); Protein Urine Negative (Negative); Red Cell Distribution Width 13.2 % (11.6-14.4); Urobilinogen Urine 0.2 mg/dL (0.2-1.0); White Blood Count 6.7 K/mm3 (4.8-10.8); pH Urine 5.5 (5.0-8.0)
[2022-10-07 12:00] LABS: Add Urine Microscopic? NO
[2022-10-07 12:07] LABS: Creatinine Urine 54.71 mg/dL (40-278); MALB Creatinine Ratio 23.7 mg/g (0-30); Microalbumin Urine Random < 13.0 mg/L
[2022-10-07 12:16] LABS: Hemoglobin A1C 6.2 % (<5.7)
[2022-10-07 12:52] LABS: Alanine Aminotransferase 24 U/L (14-59); Alkaline Phosphatase 66 U/L (46-116); Anion Gap 9 mmol/L (8-16); Aspartate Amino Transferase 17 U/L (15-37); Bilirubin Direct 0.1 mg/dL (0-0.2); Bilirubin,Total 0.4 mg/dL (0.00-1.00); Blood Urea Nitrogen 18 mg/dL (7-18); Calcium 9.1 mg/dL (8.5-10.1); Carbon Dioxide 29 mmol/L (21-32); Chloride 102 mmol/L (98-108); Estimated Glomerular Filt Rate 52; Free T3 2.58 pg/mL (2.18-3.98); Free T4 Free Thyroxine 1.08 ng/dL (0.76-1.46); Glucose 153 mg/dL (70-99); Osmolality Calculated 294 mOsm/kg (285-295); Potassium 4.4 mmol/L (3.5-5.1); Sodium 140 mmol/L (136-145); Thyroid Stimulating Hormone 2.08 uIU/mL (0.36-3.74)
[2022-10-08 07:32] LABS: Cholesterol 201 mg/dL (0-200); HDL Direct 61 mg/dL (40-60); LDL Cholesterol Calculated 118 mg/dL (<130); Triglycerides 109 mg/dL (0-150)
== END 2022-10-07 11:46 | disposition home or self-care (01) ==
LOC: CHSLAB 11:47
PROVIDERS: PCP Internal Medicine; Visit Provider Internal Medicine
DX: E11.9 Type 2 diabetes mellitus without complications (principal); I10 Essential (primary) hypertension; E78.2 Mixed hyperlipidemia; E03.4 Atrophy of thyroid (acquired); M25.511 Pain in right shoulder
CPT/HCPCS: 36415; 80053; 80061; 81003; 82043; 82248; 83036; 84439; 84443; 84481; 85025

== ENCOUNTER 2023-04-18 10:18 | Outpatient (CLI) | payer MEDICARE, SELFPAY ==
[2023-04-18 10:38] LABS: Basophils Absolute Auto 0.05 K/mm3 (0.00-0.10); Basophils Percent Auto 0.7 % (0.0-1.0); Eosinophils Absolute Auto 0.17 K/mm3 (0.02-0.50); Eosinophils Percent Auto 2.3 % (1.0-6.0); Hematocrit 39.1 % (35.0-42.0); Hemoglobin 13.1 g/dL (11.7-13.8); Immature Granulocyte Absolute 0.03 K/mm3 (0.00-0.00); Immature Granulocyte Percent A 0.4 % (0.0-0.0); Lymphocytes Absolute Auto 2.26 K/mm3 (1.10-4.50); Mean Corpuscular HGB Conc 33.5 g/dL (32.0-36.0); Mean Corpuscular Volume 86.5 fL (78.0-102.0); Mean Platelet Volume 9.9 fl (9.2-11.8); Monocytes Absolute Auto 0.52 K/mm3 (0.10-0.90); Monocytes Percent Auto 7.1 % (2.0-11.0); Neutrophils Absolute Auto 4.3 K/mm3 (1.7-7.2); Neutrophils Percent Auto 58.5 % (50.0-70.0); Platelet Count Result 252 K/mm3 (150-420); Red Blood Count 4.52 M/mm3 (4.20-5.40); Red Cell Distribution Width 13.6 % (11.6-14.4); White Blood Count 7.3 K/mm3 (4.8-10.8)
[2023-04-18 10:39] LABS: Appearance Urine Clear (Clear); Bilirubin Urine Negative (Negative); Blood Urine Negative (Negative); Color Urine Light Yellow (Yellow); Glucose Urine UA Negative (Negative); Ketones Urine Negative (Negative); Leukocyte Esterase Ur Negative (Negative); Nitrate Urine Negative (Negative); Protein Urine Negative (Negative); Specific Grav Ur >= 1.030 (1.010-1.020); Urobilinogen Urine 0.2 mg/dL (0.2-1.0); pH Urine 5.5 (5.0-8.0)
[2023-04-18 10:40] LABS: Add Urine Microscopic? NO
[2023-04-18 10:45] LABS: Creatinine Urine 122.82 mg/dL (40-278); MALB Creatinine Ratio 10.5 mg/g (0-30); Microalbumin Urine Random < 13.0 mg/L
[2023-04-18 12:02] LABS: Alanine Aminotransferase 24 U/L (14-59); Albumin Level 3.7 g/dL (3.4-5.0); Alkaline Phosphatase 68 U/L (46-116); Anion Gap 7 mmol/L (8-16); Aspartate Amino Transferase 14 U/L (15-37); Bilirubin,Total 0.5 mg/dL (0.00-1.00); Blood Urea Nitrogen 28 mg/dL (7-18); Calcium 9.1 mg/dL (8.5-10.1); Carbon Dioxide 32 mmol/L (21-32); Chloride 103 mmol/L (98-108); Cholesterol 232 mg/dL (0-200); Creatine Kinase 61 U/L (26-192); Estimated Glomerular Filt Rate 45; Free T3 2.18 pg/mL (2.18-3.98); Glucose 136 mg/dL (70-99); HDL Direct 62 mg/dL (40-60); LDL Cholesterol Calculated 141 mg/dL (<130); Osmolality Calculated 301 mOsm/kg (285-295); Potassium 4.1 mmol/L (3.5-5.1); Sodium 142 mmol/L (136-145); Total Protein 6.9 g/dL (6.4-8.2); Triglycerides 144 mg/dL (0-150)
== END 2023-04-18 10:19 | disposition home or self-care (01) ==
PROVIDERS: PCP Internal Medicine; Visit Provider Internal Medicine
DX: E03.4 Atrophy of thyroid (acquired) (principal); I10 Essential (primary) hypertension; E78.2 Mixed hyperlipidemia; E11.9 Type 2 diabetes mellitus without complications
CPT/HCPCS: 36415; 80053; 80061; 81003; 82043; 82550; 83036; 84439; 84443; 84481; 85025

== ENCOUNTER 2023-05-04 11:30 | Outpatient (CLI) | payer MEDICARE, SELFPAY ==
--- NOTE | ~2023-05-04 | XR_ITS ---
Right Shoulder Technique: AP and scapular Y views were obtained. Clinical History: Pain Findings: No fracture or dislocation is seen. Osseous alignment is anatomic. There is advanced degene rative change of the glenohumeral joint, with joint space narrowing and large inferomedial humeral he ad osteophyte. Soft tissues are unremarkable. Impression: Advanced glenohumeral joint osteoarthritis, as detailed above. Reviewed, dictated and finalized at [facility]. ICAL OPERATIONS MANAGER Impression: Advanced glenohumeral joint osteoarthritis, as detailed above.
== END 2023-05-04 11:31 | disposition home or self-care (01) ==
LOC: CHSIMG 11:32
PROVIDERS: PCP Internal Medicine; Visit Provider Internal Medicine
DX: M25.511 Pain in right shoulder (principal); M19.011 Primary osteoarthritis, right shoulder
CPT/HCPCS: 73030

== ENCOUNTER 2023-05-24 14:48 | Outpatient (CLI) | payer MEDICARE, SELFPAY ==
--- NOTE | ~2023-05-24 | MM_ITS ---
EXAMINATION: MM screening [facility] BI w sandrine HISTORY: Screening mammogram TECHNIQUE: Craniocaudal and mediolateral oblique 3-D tomosynthesis images were obtained and synthetic 2-D images were generated. CAD analysis was submitted and interpreted. COMPARISON: 01/07/2022, 01/06/2021, 01/06/2020 BREAST PARENCHYMAL COMPOSITION: There are scattered areas of fibroglandular density. FINDINGS: RIGHT BREAST: No suspicious mass, calcification, or architectural distortion are identified to sugges t malignancy. There has been no suspicious interval change. LEFT BREAST: An asymmetry is present in the middle third of the lower breast 6 cm from the nipple on the mediolateral oblique view. IMPRESSION: 1. Left breast asymmetry. 2. Additional mammographic views and possible breast ultrasound are recommended. BI-RADS Category 0: Incomplete: Needs additional imaging evaluation. Reviewed, dictated and finalized at [facility]. INE SHOP INSTRUCTOR IMPRESSION: 1. Left breast asymmetry. 2. Additional mammographic views and possible breast ultrasound are recommended . BI-RADS Category 0: Incomplete: Needs additional imaging evaluation.
== END 2023-05-24 14:49 | disposition home or self-care (01) ==
LOC: CHSIMG 14:49
PROVIDERS: PCP Internal Medicine; Visit Provider Internal Medicine
DX: Z12.31 Encounter for screening mammogram for malignant neoplasm of breast (principal); R92.8 Other abnormal and inconclusive findings on diagnostic imaging of breast
CPT/HCPCS: 77063; 77067

== ENCOUNTER 2023-06-22 09:38 | Outpatient (CLI) | payer MEDICARE, SELFPAY ==
--- NOTE | ~2023-06-22 | MMUS_ITS ---
EXAMINATION: MM diagnostic rodo LT w sandrine, US breast LT limited HISTORY: Follow-up left breast asymmetry TECHNIQUE: Additional 3-D tomosynthesis images of the left breast were performed and synthetic 2-D im ages were generated. CAD analysis was submitted and interpreted. High resolution Limited left breast ultrasound was performed. COMPARISON: Comparison to multiple prior studies sequentially, with oldest reviewed study dated 01/05. BREAST PARENCHYMAL COMPOSITION: Not dense: There are scattered areas of fibroglandular density. FINDINGS: MAMMOGRAPHIC FINDINGS: There are no suspicious masses, calcifications or architectural distortion in the left breast to sugg est malignancy. There are benign calcifications of the left breast. ULTRASOUND: Limited left breast ultrasound: Normal heterogeneous echotexture without focal solid or cystic mass. IMPRESSION: 1. No evidence for malignancy in the left breast. 2. Routine yearly screening mammogram and regular clinical breast examination are recommended. BI-RADS Category 1: Negative Reviewed, dictated and finalized at location [facility]. TOP ANALYST IMPRESSION: 1. No evidence for malignancy in the left breast. 2. Routine yearly screening mammogram and regular clinical breast examination a re recommended. BI-RADS Category 1: Negative
== END 2023-06-22 09:39 | disposition home or self-care (01) ==
LOC: CHSIMG 09:39
PROVIDERS: PCP Internal Medicine; Visit Provider Internal Medicine
DX: R92.8 Other abnormal and inconclusive findings on diagnostic imaging of breast (principal)
CPT/HCPCS: 76642; 77061; 77065; G0279

== ENCOUNTER 2023-09-28 10:39 | Outpatient (CLI) | payer MEDICARE, SELFPAY ==
[2023-09-28 10:59] LABS: Appearance Urine Clear (Clear); Bilirubin Urine Negative (Negative); Blood Urine Negative (Negative); Color Urine Light Yellow (Yellow); Glucose Urine UA Negative (Negative); Ketones Urine Negative (Negative); Leukocyte Esterase Ur Negative (Negative); Nitrate Urine Negative (Negative); Protein Urine Negative (Negative); Urobilinogen Urine 0.2 mg/dL (0.2-1.0)
[2023-09-28 11:03] LABS: Add Urine Microscopic? NO
[2023-09-28 11:05] LABS: Creatinine Urine 87.09 mg/dL (40-278); MALB Creatinine Ratio 14.9 mg/g (0-30); Microalbumin Urine Random < 13.0 mg/L
[2023-09-28 11:06] LABS: Hemoglobin A1C 6.4 % (<5.7)
[2023-09-28 11:28] LABS: Alanine Aminotransferase 16 U/L (14-59); Albumin Level 3.8 g/dL (3.4-5.0); Alkaline Phosphatase 71 U/L (46-116); Anion Gap 8 mmol/L (4-12); Aspartate Amino Transferase 15 U/L (15-37); Bilirubin,Total 0.4 mg/dL (0.00-1.00); Blood Urea Nitrogen 20 mg/dL (7-18); Calcium 9.8 mg/dL (8.5-10.1); Carbon Dioxide 31 mmol/L (21-32); Chloride 103 mmol/L (98-108); Cholesterol 165 mg/dL (0-200); Creatine Kinase 75 U/L (26-192); Estimated Glomerular Filt Rate 49; Glucose 86 mg/dL (70-99); HDL Direct 67 mg/dL (40-60); LDL Cholesterol Calculated 83 mg/dL (<130); Osmolality Calculated 295 mOsm/kg (285-295); Potassium 4.3 mmol/L (3.5-5.1); Sodium 142 mmol/L (136-145); Total Protein 6.6 g/dL (6.4-8.2); Triglycerides 74 mg/dL (0-150)
== END 2023-09-28 10:40 | disposition home or self-care (01) ==
LOC: CHSLAB 10:42
PROVIDERS: PCP Internal Medicine; Visit Provider Internal Medicine
DX: E11.65 Type 2 diabetes mellitus with hyperglycemia (principal); I10 Essential (primary) hypertension; E78.2 Mixed hyperlipidemia
CPT/HCPCS: 36415; 80053; 80061; 81003; 82043; 82550; 83036

== ENCOUNTER 2024-02-05 09:37 | Outpatient (CLI) | payer MEDICARE, SELFPAY ==
[2024-02-05 16:51] LABS: Blood Urea Nitrogen 22 mg/dL (7-18); Calcium 9.5 mg/dL (8.5-10.1); Chloride 100 mmol/L (98-108); Estimated Glomerular Filt Rate 46; Glucose 94 mg/dL (70-99); Osmolality Calculated 291 mOsm/kg (285-295); Potassium 4.3 mmol/L (3.5-5.1); Sodium 139 mmol/L (136-145)
[2024-02-05 16:56] LABS: Anion Gap 16 mmol/L (4-12); Carbon Dioxide 23 mmol/L (21-32)
[2024-02-06 14:13] LABS: Hemoglobin A1C 5.9 % (<5.7)
== END 2024-02-05 09:38 | disposition home or self-care (01) ==
LOC: CHSLAB 09:38
PROVIDERS: PCP Internal Medicine; Visit Provider Internal Medicine
DX: E11.9 Type 2 diabetes mellitus without complications (principal)
CPT/HCPCS: 36415; 80048; 83036

== ENCOUNTER 2024-06-14 09:55 | Outpatient (CLI) | payer MEDICARE, SELFPAY ==
[2024-06-14 10:08] LABS: Hematocrit 39.5 % (35.0-42.0); Hemoglobin 13.1 g/dL (11.7-13.8); Mean Corpuscular HGB Conc 33.2 g/dL (32-36); Mean Corpuscular Hemoglobin 28.6 pg (27.0-31.0); Mean Corpuscular Volume 86.2 fL (78.0-102.0); Mean Platelet Volume 9.6 fl (9.2-11.8); Platelet Count Result 244 K/mm3 (150-420); Red Blood Count 4.58 M/mm3 (4.20-5.40); Red Cell Distribution Width 13.6 % (11.6-14.4); White Blood Count 6.7 K/mm3 (4.8-10.8)
--- OUTSIDE RECORDS SUMMARY | 2024-06-14 10:23 | XMS_ITS | Data Portability ---
Author Organization [place] [facility] [place] [employer] [facility], Main Office Address [address] [place] [address] Care Team Providers Care Online Services Manager Name Role Phone SHENG BARRY Primary Care Provider SHENG BARRY Referring Provider Assessment Encounter Date Assessment Date Assessment LastModified by Organization Details LastModified Time 02/27/2023 02/27/2023 This note is dictated and transcribed by [employer]. Clinical Provider Trainer variances may occur. Despite proofreading, typographical errors may occur. Not available 02/27/2023 12:43:44 09/04/2023 09/04/2023 This note is dictated and transcribed by [employer]. Clinical Provider Trainer variances may occur. Despite proofreading, typographical errors may occur. Occasional wrong-word or 'ytkng-h-szaw' substitutions may have occurred due to the inherent limitations of voice recording. Read the chart carefully and recognize, using context, where substitutions have occurred. Not available 09/20/2023 09:37:00 12/04/2023 12/04/2023 This note is dictated and transcribed by [employer]. Clinical Provider Trainer variances may occur. Despite proofreading, typographical errors may occur. Occasional wrong-word or 'dhhqk-p-agzz' substitutions may have occurred due to the inherent limitations of voice recording. Read the chart carefully and recognize, using context, where substitutions have occurred. Not available 12/04/2023 12:44:37 03/04/2024 03/04/2024 This note is dictated and transcribed by [employer]. Clinical Provider Trainer variances may occur. Despite proofreading, typographical errors may occur. Occasional wrong-word or 'ulyvp-h-nbia' substitutions may have occurred due to the inherent limitations of voice recording. Read the chart carefully and recognize, using context, where substitutions have occurred. [email or web address] Not available 03/04/2024 13:51:57 Plan of Treatment Reminders Order Date Submit Date Provider Last Modified By Organization Details Last Modified Time Details Appointments None record ed. Lab None record ed. Referral None record ed. Procedures None record ed. Surgeries None record ed. Imaging None record ed. Medication Orders None record ed. Patient TargetsNo targets recorded. Patient Instructions Encounter Date Encounter Id Patient Instructions Last Modified By Organization Details Last Modified Time 05/29/2023 [id number] diabetic foot care education Not available 05/29/2023 11:49:51 Reason for Referral None Reported. Problems Name Problem SNOMED Code Status Onset Date Resolution Date Notes Provider Name and Address Organization Details Recorded Time Osteoarthriti s 463406012 Active Not Available [facility] 3 20:02:57 Bunion 496991182 Active 2019 Not Available [facility] 3 20:02:57 Diabetes mellitus 06804145 Active 2019 Not Available [facility] 20:02:57 Dystrophia unguium 01272017 Active 2022 Zachary Jane DPM [address], [address], [place], [address] , [employer] 3 14:39:34 Bunion 285780650 Active 2022 Zachary Jane DPM [address], [address], [place], [address] , [employer] 4 11:49:25 Hammer toe 748403946 Active 2022 Zachary Jane DPM [address], [address], [place], [address] , [employer] 3 14:40:17 Problem Notes None recorded. Procedures Surgical History Date Name Laterality Status Provider Name and Address Organization Details Recorded Time 4 Nail Debridement completed Zachary Jane DPM [address], [address], [place], [address], [employer] 03/04/2024 13:51:46 4 Nail Debridement completed Zachary Jane DPM [address], [address], [place], [address], [employer] [facility] [employer] [facility] [facility] [employer] 12/04/2023 12:44:29 4 Nail Debridement completed Zachary Jane DPM [address], [address], [place], [address], [employer] [facility] [employer] [facility] 09/04/2023 15:17:11 4 Nail Debridement completed Zachary Jane DPM [address], [address], [place], [address], [employer] [facility] [employer] 05/29/2023 11:49:13 3 Nail Debridement completed Zachary Jane DPM [address], [address], [place], [address], [employer] [facility] [employer] [facility] [employer] 02/27/2023 12:43:07 3 Nail Debridement completed Zachary Jane DPM [address], [address], [place], [address], [employer] [facility] [facility] [employer] 11/28/2022 12:40:12 3 Nail Debridement completed Zachary Jane DPM [address], [address], [place], [address], [employer] [facility] [employer] [facility] [employer] 08/29/2022 14:35:57 Imaging Results None recorded. Procedure Notes None recorded. Medical Equipment None Reported. Allergies No known drug allergies Medications Name Sig Start Date Stop Date Status Note LastModified by Organization Details LastModified Time celecoxib 200 mg capsule 09/03 completed Not Available Not Available Not Available amoxicillin 500 mg capsule Take 1 capsule every 8 hours by oral route as directed for 3 days. 09/03 completed Not Available Not Available Not Available metformin 500 mg tablet active Not Available Not Available Not Available bupropion HCl SR 150 mg tablet,12 hr sustained-r elease active Not Available Not Available Not Available citalopram 40 mg tablet active Not Available Not Available Not Available azithromyci n 250 mg tablet 11/23 completed Not Available Not Available Not Available tizanidine 4 mg tablet 09/03 completed Not Available Not Available Not Available hydrocodone 5 mg-acetamin ophen 325 mg tablet 09/03 completed Not Available Not Available Not Available glipizide ER 10 mg tablet, extended release 24 hr active Not Available Not Available Not Available simvastatin 10 mg tablet active Not Available Not Available Not Available ciprofloxac in 500 mg tablet 09/03 completed Not Available Not Available Not Available aspirin 81 mg tablet,otto yed release Take 1 tablet every day by oral route. 2017 active Not Available Not Available Not Avai lable tramadol 50 mg tablet 09/03 completed Not Available Not Available Not Available triamcinolo ne acetonide 0.1 % topical cream 09/03 completed Not Available Not Available Not Available ketorolac 10 mg tablet 09/03 completed Not Available Not Available Not Available losartan 100 mg-hydrochl orothiazide 25 mg tablet Take 1 tablet every day by oral route. active Not Available Not Available No t Available oxycodone-a cetaminophe n 5 mg-325 mg tablet 09/03 completed Not Available Not Available Not Available dexamethaso ne 2 mg tablet 09/03 completed Not Available Not Available Not Available levothyroxi ne 50 mcg tablet active Not Available Not Available Not Available hydrochloro thiazide 25 mg tablet active Not Available Not Available No t Available mupirocin 2 % topical ointment 09/03 completed Not Available Not Available Not Available ipratropium bromide 42 mcg (0.06 %) nasal spray 09/03 completed Not Available Not Available Not Available losartan 50 mg-hydrochl orothiazide 12.5 mg tablet active Not Available Not Available Not Available losartan 100 mg tablet 09/03 completed Not Available Not Available Not Available amoxicillin 875 mg-potassiu m clavulanate 125 mg tablet TAKE 1 TABLET BY MOUTH EVERY 12 HOURS 09/03 completed Not Available Not Available Not Available enoxaparin 30 mg/0.3 mL subcutaneou s syringe 09/03 completed Not Available Not Available Not Available aspirin 09/03 completed Not Available Not Available Not Available Fish Oil 1000mg 09/03 completed Not Available Not Available Not Available Vitamin D3 09/03 completed Not Available Not Available Not Available multivitami n 2017 active Not Available Not Available Not Avai lable Calcium 500 + D 2019 active Not Available Not Available Not Avai lable Afluria Qd 2018- (36 mos up)(PF)60 mcg (15 mcg x4)/0.5 mL IM syringe ADM 0.5ML IM UTD 09/03 completed Not Available Not Available Not Available Vitals Date Recorded Heart rate Respiratory rate Oxygen saturation Oxygen saturation in Arterial blood by Pulse oximetry Systolic blood pressure Diastolic blood pressure Provider Name and Address Organization Details Last Updated DateTime 3 96 /min 14 /min 98 % 98 % 144 mm[Hg] 87 mm[Hg] Katie Calzada [employer] 3 12:36:00 Date Recorded Heart rate Respiratory rate Oxygen saturation Oxygen saturation in Arterial blood by Pulse oximetry Systolic blood pressure Diastolic blood pressure Provider Name and Address Organization Details Last Updated DateTime 4 88 /min 14 /min 98 % 98 % 124 mm[Hg] 69 mm[Hg] Katie Calzada [employer] 4 11:43:01 Date Recorded Heart rate Respiratory rate Oxygen saturation Oxygen saturation in Arterial blood by Pulse oximetry Systolic blood pressure Diastolic blood pressure Provider Name and Address Organization Details Last Updated DateTime 4 90 /min 14 /min 99 % 99 % 123 mm[Hg] 73 mm[Hg] Katie Calzada [employer] 4 11:47:48 Date Recorded Body height Body mass index (BMI) Body weight Heart rate Respiratory rate Body temperature Oxygen saturation Oxygen saturation in Arterial blood by Pulse oximetry Systolic blood pressure Diastolic blood pressure Provider Name and Address Organization Details Last Updated DateTime 4 160.02 cm 30.1 kg/m2 11585.7 g 83 /min 14 /min 97.8 [degF] 98 % 98 % 120 mm[Hg] 80 mm[Hg] Telma Solares [employer] 4 11:51:09 Date Recorded Body height Body mass index (BMI) Body weight Heart rate Respiratory rate Oxygen saturation Oxygen saturation in Arterial blood by Pulse oximetry Systolic blood pressure Diastolic blood pressure Provider Name and Address Organization Details Last Updated DateTime 160.02 cm 30.1 kg/m2 45302.7 g 89 /min 14 /min 98 % 98 % 136 mm[Hg] 69 mm[Hg] Katie Case [facility] 4 11:38:44 Social History None recorded. Functional Status None recorded. Mental Status None recorded. Family History Relationship Description Onset Age of this Age Resolved Age Notes LastModified by Organization Details LastModified Time Father Diabetes mellitus [email or web address] Not available 11/19 11:51:50 Medical History Condition Response DIABETES, TYPE Y HYPERTENSION Y HIGH CHOLESTEROL / HYPERLIPIDEMIA Y Gynecological HistoryNo gynecological history recorded. Obstetrics History GPAL:G 0 P 0 0 0 0 Past Encounters Encounter ID Performer Location Encounter Start Date Encounter Closed Date Diagnosis/Indication Diagnosis SNOMED-CT Code Diagnosis ICD10 Code Diagnosis Note [id number] [facility] [place] [address] [place] [address] 10/26/2020 00:00:00 10/27/2020 16:42:57 [id number] [facility] [place] [address] [place] [address] 09/23/2021 00:00:00 09/25/2021 12:34:01 [id number] [facility] [place] [address] [place] [address] 12/27/2021 00:00:00 12/28/2021 10:37:32 [id number] [facility] [place] [address] [place] [address] 04/04/2022 00:00:00 04/05/2022 10:53:54 [id number] Zachary Jane DPM [facility] [place] [address] [place] [address] 08/29/2022 12:30:17 08/29/2022 14:45:11 Diabetes mellitus 82316086 E11.9 Patient educated on neuropathy , diabetes, diabetic diet, and daily foot exams. Patient is to check feet daily for new wounds, blisters, redness to prevent infection and ulceration s to the feet. Patient will return to clinic in 3 months for diabetic foot workup. Dystrophia unguium 90347 009 L60.3 Nails 1 through 10 were debrided with sharp mechanical debridemen t without incident. Nails were debrided and greater than 50% length and thickness where needed. Bunion 221657402 M21.61 1 M21.612 educated on conservati ve and surgical treatments Patient elects to continue with conservati ve therapyRec ommend wide style shoes Hammer toe 018867855 M20 .41 M20.42 as above [id number] Zachary Jane DPM [facility] [place] [address] [place] [address] 11/28/2022 12:35:24 11/28/2022 14:59:58 Diabetes mellitus 26693611 E11.9 Continue diabetic control per PCPCheck feet daily for wounds infectionC ontinue supportive shoe gearFollow -up in 3 months Dystrophia unguium 00154 009 L60.3 Nails 1 through 10 were debrided with sharp mechanical debridemen t without incident. Nails were debrided and greater than 50% length and thickness where needed. [id number] Rehana Osuna [facility] [place] [address] [place] [address] 02/27/2023 12:31:40 02/28/2023 15:24:52 Diabetes mellitus 42792027 E11.9 Continue diabetic control per PCPCheck feet daily for wounds infectionC ontinue supportive shoe gearFollow -up in 3 months Dystrophia unguium 95650 009 L60.3 Nails 1 through 10 were debrided with sharp mechanical debridemen t without incident. Nails were debrided and greater than 50% length and thickness where needed. Hammer toe 538647522 M20 .41 M20.42 as above Bunion 514521917 M21.61 1 M21.612 educated on conservati ve and surgical treatments Patient elects to continue with conservati ve therapyRec ommend wide style shoes [id number] Zachary Jane DPM [facility] [place] [address] [place] [address] 05/29/2023 11:39:06 05/29/2023 11:59:23 Diabetes mellitus 72855252 E11.9 Continue diabetic control per PCPCheck feet daily for wounds infectionC ontinue supportive shoe gearFollow -up in 3 months Bunion [id number] M21.61 1 M21.612 educated on conservati ve and surgical treatments Patient elects to continue with conservati ve therapyRec ommend wide style shoes Hammer toe 267456095 M20 .41 M20.42 as above Dystrophia unguium 68268 009 L60.3 Nails were debrided without incident [id number] Zachary Jane DPM [facility] [place] [address] [place] [address] 09/04/2023 11:39:59 09/20/2023 11:12:00 Diabetes mellitus 53882335 E11.9 Continue diabetic control per PCPCheck feet daily for wounds infectionC ontinue supportive shoe gearFollow -up in 3 months Dystrophia unguium 32222 009 L60.3 Nails were debrided without incident [id number] Zachary Jane DPM [facility] [place] [address] [place] [address] 12/04/2023 11:28:33 12/06/2023 10:58:46 Diabetes mellitus 86643787 E11.9 Continue diabetic control per PCPCheck feet daily for wounds infectionC ontinue supportive shoe gearFollow -up in 3 months Dystrophia unguium 64541 009 L60.3 Nails were debrided without incident Bunion [id number] M21.61 1 M21.612 educated on conservati ve and surgical treatments Patient elects to continue with conservati ve therapyRec ommend wide style shoesdenie s surgery [id number] Zachary Jane DPM [facility] [place] [address] [place] [address] 03/04/2024 11:35:24 03/05/2024 14:44:06 Diabetes mellitus 90448532 E11.9 Continue diabetic control per PCPCheck feet daily for wounds infectionC ontinue supportive shoe gearFollow -up in 3 months Dystrophia unguium 73924 009 L60.3 Nails were debrided without incident Bunion [id number] M21.61 1 M21.612 educated on conservati ve and surgical treatments Patient elects to continue with conservati ve therapyRec ommend wide style shoesdenie s surgery Health Concerns Section Related Observation LastModified by Organization Detai ls LastModified Time None Recorded Concern Status LastModified by Organization Details LastModified Time None Recorded Advance Directives Directive None Recorded Payers Encounter Date Sequence Insurance Name Policy Number Policy Sow Covered Member ID Sow Member ID Guarantor Name 02/27/2023 1 [place] Karen J [place] [id number] Karen [place] 02/27/2023 2 [employer] CHOICE (SECONDARY TO MEDICARE) Karen [place] [id number] Karen [place] 05/29/2023 1 [place] Karen J [place] [id number] Karen [place] 05/29/2023 2 [employer] - [employer]ORS CHOICE (SECONDARY TO MEDICARE) Karen [place] [id number] Karen [place] 09/04/2023 1 [place] Karen J [place] [id number] Karen [place] 09/04/2023 2 [employer] - [employer]IORS CHOICE (SECONDARY TO MEDICARE) Karen [place] [id number] Karen [place] 12/04/2023 1 [place] Karen J [place] [id number] Karen [place] 12/04/2023 2 [employer] - [employer]IORS CHOICE (SECONDARY TO MEDICARE) Karen [place] [id number] Karen [place] 03/04/2024 1 [place] Karen J [place] [id number] 2 Karen [place] 03/04/2024 2 [employer] - [employer] CHO[employer] (SECONDARY TO MEDICARE) Karen [place] [id number] Karen [place] Notes Date Note Type Note Provider Name and Address Organization Details Recorded Time 02/27/2023 text/html . Patient is a 78-year-old female who returns the office for follow-up on diabetic foot care. Patient has bilateral bunion deformities with hammertoe deformities of the 2nd toes. Patient states overall she has been doing well denies any wounds or infection of the feet. Patient denies any intermittent claudication walking or rest pain. Patient states she is unable to bend over to cut her toenails and states they become long. Patient denies any other complaints. Not Available Not Available Not Available 05/29/2023 text/html . Patient is a 78-year-old female diabetic who returns the office for follow-up on diabetic foot care. Patient states that she continues have bunion and hammertoes of both feet which she denies any open wounds or infection. Patient does not utilize diabetic shoes or insoles with states that she has continued normal shoe gear without any difficulty. Patient states her nails are long like to have them cut. Patient states she does not have any numbness tingling or burning in the feet. Patient denies any other complaints. Zachary Jane DPM [address], [address], [place], [address], [employer] 05/29/2023 11:51:05 09/04/2023 text/html Patient is a 78-year-old female diabetic who returns to the office for diabetic foot care. Patient states that she has continued bunions and hammertoes but denies any open wounds or infection. Patient states her diabetes has been doing well. Patient denies any numbness or tingling in the feet. Patient denies any other complaints. Zachary Jane DPM [address], [address], [place], [address], [employer] 09/20/2023 09:37:18 12/04/2023 text/html . Patient is a 78-year-old female diabetic with toe deformity secondary to bunions and hammertoes. Patient states she has no open wounds or foot pain. Patient states that she is doing well she denies any recent injuries. Patient denies any fever, chills, nausea vomiting. Patient denies any numbness or tingling in the feet. Patient states her nails are long like to have them cut. Patient denies any other complaints. Zachary Jane DPM [address], [address], [place], [address], [employer] [facility] 12/04/2023 12:45:12 03/04/2024 text/html . Patient is a 79-year-old female who returns for follow-up on diabetic foot care she is doing well she denies any open wounds or infection she does have chronic bunions which she states are not painful when do not cause her any issues. Patient denies any other complaints. Zachary Jane DPM [address], [address], [place], [address], [employer] [facility] 03/04/2024 13:52:17 OBGyn Episode No OBEpisode recorded.
[2024-06-14 10:44] LABS: Hemoglobin A1C 6.4 % (<5.7)
[2024-06-14 10:52] LABS: Alanine Aminotransferase 26 U/L (14-59); Albumin Level 4.1 g/dL (3.4-5.0); Alkaline Phosphatase 61 U/L (46-116); Anion Gap 9 mmol/L (4-12); Aspartate Amino Transferase 14 U/L (15-37); Bilirubin,Total 0.5 mg/dL (0.00-1.00); Blood Urea Nitrogen 22 mg/dL (7-18); Calcium 9.5 mg/dL (8.5-10.1); Carbon Dioxide 29 mmol/L (21-32); Chloride 102 mmol/L (98-108); Cholesterol 159 mg/dL (0-200); Estimated Glomerular Filt Rate 44; Free T3 2.84 pg/mL (2.18-3.98); Free T4 Free Thyroxine 0.97 ng/dL (0.76-1.46); Glucose 108 mg/dL (70-99); HDL Direct 67 mg/dL (40-60); LDL Cholesterol Calculated 69 mg/dL (<130); Osmolality Calculated 294 mOsm/kg (285-295); Potassium 4.2 mmol/L (3.5-5.1); Sodium 140 mmol/L (136-145); Thyroid Stimulating Hormone 4.34 uIU/mL (0.36-3.74); Total Protein 6.6 g/dL (6.4-8.2); Triglycerides 113 mg/dL (0-150)
[2024-06-14 13:14] LABS: Creatinine Urine 69.78 mg/dL (40-278); MALB Creatinine Ratio 18.6 mg/g (0-30); Microalbumin Urine Random < 13.0 mg/L
[2024-06-14 13:27] LABS: Add Urine Microscopic? NO; Appearance Urine Clear (Clear); Bilirubin Urine Negative (Negative); Blood Urine Negative (Negative); Color Urine Light Yellow (Yellow); Glucose Urine UA Negative (Negative); Ketones Urine Negative (Negative); Leukocyte Esterase Ur Negative (Negative); Nitrate Urine Negative (Negative); Protein Urine Negative (Negative); Urobilinogen Urine 0.2 mg/dL (0.2-1.0); pH Urine 6.5 (5.0-8.0)
== END 2024-06-14 09:56 | disposition home or self-care (01) ==
LOC: CHSLAB 09:56
PROVIDERS: PCP Internal Medicine; Visit Provider Internal Medicine
DX: I10 Essential (primary) hypertension (principal); E78.2 Mixed hyperlipidemia; E11.65 Type 2 diabetes mellitus with hyperglycemia; E03.4 Atrophy of thyroid (acquired); N18.2 Chronic kidney disease, stage 2 (mild)
CPT/HCPCS: 36415; 80053; 80061; 81003; 82043; 83036; 84439; 84443; 84481; 85027

== ENCOUNTER 2024-07-02 14:55 | Outpatient (CLI) | payer MEDICARE, SELFPAY ==
--- NOTE | ~2024-07-02 | MM_ITS ---
EXAMINATION: MM screening rodo BI w sandrine HISTORY: Screening TECHNIQUE: Craniocaudal and mediolateral oblique 3-D tomosynthesis images were obtained and synthetic 2-D images were generated. CAD analysis was submitted and interpreted. COMPARISON: Comparison to multiple prior studies sequentially, with oldest reviewed study dated 01/06. BREAST PARENCHYMAL COMPOSITION: Not dense: There are scattered areas of fibroglandular density. FINDINGS: There is no evidence of suspicious mass, calcification, or architectural distortion to sugg est malignancy in either breast. There has been no suspicious interval change. IMPRESSION: 1. No mammographic evidence of malignancy. 2. Recommend routine screening mammography in one year. BI-RADS Category 1: Negative Reviewed, dictated and finalized at location B. E SEARCH MANAGER
--- OUTSIDE RECORDS SUMMARY | 2024-07-02 15:45 | XMS_ITS | Data Portability ---
Author Organization [place] - [facility], Main Office Address [address] [place] [address] Care Team Providers Care Steel Post Installer Supervisor Name Role Phone SHENG BARRY Primary Care Provider SHENG BARRY Referring Provider [phone] Assessment Encounter Date Assessment Date Assessment LastModified by Organization Details LastModified Time 02/27/2023 02/27/2023 This note is dictated and transcribed by [employer]. Electronics Teacher variances may occur. Despite proofreading, typographical errors may occur. Not available 02/27/2023 12:43:44 09/04/2023 09/04/2023 This note is dictated and transcribed by [employer]. Electronics Teacher variances may occur. Despite proofreading, typographical errors may occur. Occasional wrong-word or 'crshr-a-xjwk' substitutions may have occurred due to the inherent limitations of voice recording. Read the chart carefully and recognize, using context, where substitutions have occurred. Not available 09/20/2023 09:37:00 12/04/2023 12/04/2023 This note is dictated and transcribed by [employer]. Electronics Teacher variances may occur. Despite proofreading, typographical errors may occur. Occasional wrong-word or 'fbxhy-c-ugbj' substitutions may have occurred due to the inherent limitations of voice recording. Read the chart carefully and recognize, using context, where substitutions have occurred. Not available 12/04/2023 12:44:37 03/04/2024 03/04/2024 This note is dictated and transcribed by [employer]. Electronics Teacher variances may occur. Despite proofreading, typographical errors may occur. Occasional wrong-word or 'ngptl-h-rmik' substitutions may have occurred due to the inherent limitations of voice recording. Read the chart carefully and recognize, using context, where substitutions have occurred. Not available 03/04/2024 13:51:57 Plan of Treatment Reminders Order Date Submit Date Provider Last Modified By Organization Details Last Modified Time Details Appointments Establish ed Patient 15 2024 03:45P M Zachary Jane DPM Not available Not available Not available Lab None recorded. Referral None recorded. Procedures None recorded. Surgeries None recorded. Imaging None recorded. Medication Orders None recorded. Patient TargetsNo targets recorded. Patient Instructions Encounter Date Encounter Id Patient Instructions Last Modified By Organization Details Last Modified Time 05/29/2023 [id number] diabetic foot care education Not available 05/29/2023 11:49:51 Reason for Referral None Reported. Problems Name Problem SNOMED Code Status Onset Date Resolution Date Notes Provider Name and Address Organization Details Recorded Time Osteoarthriti s 667819164 Active Not Available [facility] 3 20:02:57 Bunion 198101809 Active 2019 Not Available [facility] 20:02:57 Diabetes mellitus 10074797 Active 2019 Not Available [facility] 3 20:02:57 Dystrophia unguium 49749234 Active 2022 Zachary Jane DPM [address], [address], [place], [address] , [employer] 3 14:39:34 Bunion 421567179 Active 2022 Zachary Jane DPM [address], [address], [place], [address] , [employer] 4 11:49:25 Hammer toe 017471782 Active 2022 Zachary Jane DPM [address], [address], [place], [address] , [employer] 3 14:40:17 Problem Notes None recorded. Procedures Surgical History Date Name Laterality Status Provider Name and Address Organization Details Recorded Time 4 Nail Debridement completed Zachary Jane DPM [address], [address], [place], [address], [employer] 03/04/2024 13:51:46 4 Nail Debridement completed Zachary Jane DPM [address], [address], [place], [address], [facility] [employer] [facility] 12/04/2023 12:44:29 4 Nail Debridement completed Zachary Jane DPM [address], [address], [place], [address], [employer] [facility] 09/04/2023 15:17:11 4 Nail Debridement completed Zachary Jane DPM [address], [address], [place], [address], [employer] [facility] [employer] 05/29/2023 11:49:13 3 Nail Debridement completed Zachary Jane DPM [address], [address], [place], [address], [employer] [facility] [employer] 02/27/2023 12:43:07 3 Nail Debridement completed Zachary Jane DPM [address], [address], [place], [address], [employer] [facility] [employer] 11/28/2022 12:40:12 3 Nail Debridement completed Zachary Jane DPM [address], [place], [address], [employer] [facility] [employer] 08/29/2022 14:35:57 Imaging Results None recorded. Procedure [...] Not Available Not Avai lable Afluria Qd 2019-20 (36 mos up)(PF)60 mcg (15 mcg x4)/0.5 [...] % 144 mm[Hg] 87 mm[Hg] Katie Calzada [employer] 3 12:36:00 Date Recorded Heart rate Respiratory rate Oxygen saturation Oxygen saturation in Arterial blood by Pulse oximetry Systolic blood pressure Diastolic blood pressure Provider Name and Address Organization Details Last Updated DateTime 4 88 /min 14 /min 98 % 98 % 124 mm[Hg] 69 mm[Hg] Katie Calzada [employer] 4 11:43:01 Date Recorded Heart rate Respiratory rate Oxygen saturation Oxygen saturation in Arterial blood by Pulse oximetry Systolic blood pressure Diastolic blood pressure Provider Name and Address Organization Details Last Updated DateTime 4 90 /min 14 /min 99 % 99 % 123 mm[Hg] 73 mm[Hg] Katie Calzada [employer] 4 11:47:48 Date Recorded Body height Body mass index (BMI) Body weight Heart rate Respiratory rate Body temperature Oxygen saturation Oxygen saturation in Arterial blood by Pulse oximetry Systolic blood pressure Diastolic blood pressure Provider Name and Address Organization Details Last Updated DateTime 4 160.02 cm 30.1 kg/m2 02522.7 g 83 /min 14 /min 97.8 [degF] 98 % 98 % 120 mm[Hg] 80 mm[Hg] Telma Solares [employer] 4 11:51:09 Date Recorded Body height Body mass index (BMI) Body weight Heart rate Respiratory rate Oxygen saturation Oxygen saturation in Arterial blood by Pulse oximetry Systolic blood pressure Diastolic blood pressure Provider Name and Address Organization Details Last Updated DateTime 4 160.02 cm 30.1 kg/m2 97064.7 g 89 /min 14 /min 98 % 98 % 136 mm[Hg] 69 mm[Hg] Katie Calzada [place] [facility] 4 11:38:44 Social History None recorded. Functional [...] SNOMED-CT Code Diagnosis ICD10 Code Diagnosis Note [id number] [facility] [address] [place] [address] 10/26/2020 00:00:00 10/27/2020 16:42:57 [id number] [facility] [address] [place] [address] 09/23/2021 00:00:00 09/25/2021 12:34:01 [id number] [facility] [address] [place] [address] 12/27/2021 00:00:00 12/28/2021 10:37:32 [id number] [facility] [address] [place] [address] 04/04/2022 00:00:00 04/05/2022 10:53:54 [id number] Zachary Jane DPM [facility] [address] [place] [address] 08/29/2022 12:30:17 08/29/2022 14:45:11 Diabetes mellitus 90351804 E11.9 Patient educated on neuropathy , diabetes, diabetic diet, and daily foot exams. Patient is to check feet daily for new wounds, blisters, redness to prevent infection and ulceration s to the feet. Patient will return to clinic in 3 months for diabetic foot workup. Dystzaneia unguium 73237 009 L60.3 Nails 1 through 10 were debrided with sharp mechanical debridemen t without incident. Nails were debrided and greater than 50% length and thickness where needed. Bunion 122556858 M21.61 1 M21.612 educated on conservati ve and surgical treatments Patient elects to continue with conservati ve therapyRec ommend wide style shoes Hammer toe 816414057 M20 .41 M20.42 as above [id number] Zachary Jane DPM [facility] [address] [place] [address] 11/28/2022 12:35:24 11/28/2022 14:59:58 Diabetes mellitus 62481535 E11.9 Continue diabetic control per PCPCheck feet daily for wounds infectionC ontinue supportive shoe gearFollow -up in 3 months Dystrophia unguium 53475 009 L60.3 Nails 1 through 10 were debrided with sharp mechanical debridemen t without incident. Nails were debrided and greater than 50% length and thickness where needed. [id number] Rehana Enrrique [facility] [address] [place] [address] 02/27/2023 12:31:40 02/28/2023 15:24:52 Diabetes mellitus 51585135 E11.9 Continue diabetic control per PCPCheck feet daily for wounds infectionC ontinue supportive shoe gearFollow -up in 3 months Dystrophia unguium 48490 009 L60.3 Nails 1 through 10 were debrided with sharp mechanical debridemen t without incident. Nails were debrided and greater than 50% length and thickness where needed. Hammer toe 213449537 M20 .41 M20.42 as above Bunion 985833358 M21.61 1 M21.612 educated on conservati ve and surgical treatments Patient elects to continue with conservati ve therapyRec ommend wide style shoes [id number] Zachary Jane DPM [facility] [address] [place] [address] 05/29/2023 11:39:06 05/29/2023 11:59:23 Diabetes mellitus 62338476 E11.9 Continue diabetic control per PCPCheck feet daily for wounds infectionC ontinue supportive shoe gearFollow -up in 3 months Bunion 865101537 M21.61 1 M21.612 educated on conservati ve and surgical treatments Patient elects to continue with conservati ve therapyRec ommend wide style shoes Hammer toe 552680100 M20 .41 M20.42 as above Dystrophia unguium 59867 009 L60.3 Nails were debrided without incident [id number] Zachary Jane DPM [facility] [address] [place] [address] 09/04/2023 11:39:59 09/20/2023 11:12:00 Diabetes mellitus 81565273 E11.9 Continue diabetic control per PCPCheck feet daily for wounds infectionC ontinue supportive shoe gearFollow -up in 3 months Dystrophia unguium 77093 009 L60.3 Nails were debrided without incident [id number] Zachary Jane DPM [facility] [address] [place] [address] 12/04/2023 11:28:33 12/06/2023 10:58:46 Diabetes mellitus 63619620 E11.9 Continue diabetic control per PCPCheck feet daily for wounds infectionC ontinue supportive shoe gearFollow -up in 3 months Dystrophia unguium 08988 009 L60.3 Nails were debrided without incident Bunion 593300439 M21.61 1 M21.612 educated on conservati ve and surgical treatments Patient elects to continue with conservati ve therapyRec ommend wide style shoesdenie s surgery [id number] Zachary Jane DPM [facility] [address] [place] [address] 03/04/2024 11:35:24 03/05/2024 14:44:06 Diabetes mellitus 86676812 E11.9 Continue diabetic control per PCPCheck feet daily for wounds infectionC ontinue supportive shoe gearFollow -up in 3 months Dystrophia unguium 59552 009 L60.3 Nails were debrided without incident Bunion 643983562 M21.61 1 M21.612 educated on conservati ve [...] Guarantor Name 02/27/2023 1 [place] Karen [place] [id number] 2 Karen [place] 02/27/2023 2 [employer] - SENIORS CHOICE (SECONDARY TO MEDICARE) Karen [place] [id number] Karen [place] 05/29/2023 1 [place] Karen [place] [id number] 2 Karen [place] 05/29/2023 2 [employer] - SENIORS CHOICE (SECONDARY TO MEDICARE) Karen [place] [id number] Karen [place] 09/04/2023 1 [place] Karen [place] [id number] 2 Karen [place] 09/04/2023 2 [employer] - SENIORS CHOICE (SECONDARY TO MEDICARE) Karen [place] [id number] Karen [place] 12/04/2023 1 [place] Karen Graham [place] [id number] 2 Karen [place] 12/04/2023 2 [employer] - SENIORS CHOICE (SECONDARY TO MEDICARE) Karen [place] [id number] Karen [place] 03/04/2024 1 [place] Karen [place] [id number] 2 Karen [place] 03/04/2024 2 [employer] - SENIORS CHOICE (SECONDARY TO MEDICARE) Karen [place] [id number] Karen [place] Notes Date Note Type Note Provider Name [...] any other complaints. Zachary Jane DPM [address], [place], [address], [employer] 05/29/2023 11:51:05 09/04/2023 text/html Patient is a 78-year-old female diabetic who returns to the office for diabetic foot care. Patient states that she has continued bunions and hammertoes but denies any open wounds or infection. Patient states her diabetes has been doing well. Patient denies any numbness or tingling in the feet. Patient denies any other complaints. Zachary Jane DPM [address], [address], [place], [address], [employer] 09/20/2023 09:37:18 12/04/2023 text/html . Patient is [...] Jane DPM [address], [place], [address], [employer] [facility] 12/04/2023 12:45:12 03/04/2024 text/html . Patient is a 79-year-old female who returns for follow-up on diabetic foot care she is doing well she denies any open wounds or infection she does have chronic bunions which she states are not painful when do not cause her any issues. Patient denies any other complaints. Zachary Jane DPM [address], [place], [address], [employer] 03/04/2024 13:52:17 OBGyn Episode No OBEpisode recorded.
--- OUTSIDE RECORDS SUMMARY | 2024-07-02 15:45 | XMS_ITS | Clinical Summary ---
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 Gender Identity Not on file Sexual Orientation Not on file Plan of Treatment Health Maintenance Due Date Last Done Comments Hepatitis C 01/26/1964 DTaP, Tdap and Td Vaccines ( 1 - Tdap) 1965 Zoster Vaccines (1 of 2) 01/26/1996 Annual Medicare Wellness Visit 2011 Dexa Scan (General) 2011 Pneumococcal Vaccine: 65+ Ye ars (1 of 1 - PCV) 2011 RSV Immunization or 60+ Years (1 - 1-dose 75+ series) 2021 COVID-19 Vaccine ( - 2023-2 5 season) 2024 Influenza Adult (#1) 2024 Meningococcal B Vaccine Aged Out No l onger eligible based on patient's age to complete this topic Meningococcal Vaccine Aged Out No harinder arnulfo eligible based on patient's age to complete this topic RSV Immunizations Under 20 Months Aged Out No longer eligible based on patient's age to complete this topic Insurance [facility] MEDICARE
--- OUTSIDE RECORDS SUMMARY | 2024-07-02 15:45 | XMS_ITS | Continuity of Care Document ---
Author Organization [facility] Address [address] [place] [address] [address] [place] [address] Phone Care Team Providers Care Sanitary Chemist Name Role Phone Morris Jacob Unavailable Unavailable Procedures Procedure Date Eye Exam Established Pt Eye Exam Established Pt Office/outpatient Visit, Est Advance Directives Directive Yes / No Effective Date File Name No Information Encounters Encounter Description Practice Location Reason(s) For Visit Diagnoses Date Provider Providers Copied on Encounter [facility], [address] [place] [address] [address], [place], [place], [id number], [place] tel:[phone] [facility] No Information 8 8 Nidia Caceres. [address] [place], [place], [facility], . tel:[phone] Referring Provider: Morris [place], [address] [place], [place], [facility]. tel:[phone] [facility], [address] [place] [address] [address], [place], [place], [id number], [place] tel:[phone] [facility] No Information 9-200 8 Ana Maria Muller. [address], [place], [place], [facility], [place]. tel:[phone] Office/outpat ient Visit, Est [facility], [address] [place] [address] [address], [place], [place], [id number], [place] tel:[phone] [facility] No Information 7 Nidia Caceres. [address] [place], [address], [place]. tel:[phone] Family History Family Member Type Diagnosis Age At Onset No Information Payers Payer name Insurance type Covered alliance party ID Ayaka matute(s) [facility] Commercial CI [id number] Social History Type Description Quantity Date Captured [...]
== END 2024-07-02 14:56 | disposition home or self-care (01) ==
LOC: CHSIMG 14:56
PROVIDERS: PCP Internal Medicine; Visit Provider Internal Medicine
DX: Z12.31 Encounter for screening mammogram for malignant neoplasm of breast (principal)
CPT/HCPCS: 77063; 77067

== ENCOUNTER 2024-07-15 13:57 | Outpatient (CLI) | payer MEDICARE, SELFPAY ==
--- NOTE | ~2024-07-15 | XR_ITS ---
Lumbosacral Spine: AP and lateral views Clinical History: Pain COMPARISON: 08/21/2019 Findings: The normal lordotic curve is maintained. There is grade 1 retrolisthesis of L1 over L2. The re is grade 1 anterolisthesis of L5 over S1. There is severe, diffuse facet arthropathy throughout th e lumbar spine, similar to prior exam. There is advanced degenerative disc narrowing at L1-L2. There is minimal degenerative change at the remaining lumbar levels. The sacroiliac joints are normally out lined. Impression: Advanced spondylosis overall, as detailed above, with extensive facet arthropathy. Grade 1 anterolisthesis of L1 over L2. Grade 1 anterolisthesis of L5 over S1. Reviewed, dictated and finalized at location . 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 Grade 1 anterolisthesis of L1 over L2. Grade 1 anterolisthesis of L5 over S1.
--- OUTSIDE RECORDS SUMMARY | 2024-07-15 16:09 | XMS_ITS | Continuity of Care Document ---
Author Organization [facility] Address [address] [place] [address] [address] [place] [address] Phone Care Team Providers Care Stereotype Caster Name Role Phone Morris Jacob Unavailable Unavailable Procedures Procedure Date Eye Exam Established Pt Eye Exam Established Pt Office/outpatient Visit, Est Advance Directives Directive Yes / No Effective Date File Name No Information Encounters Encounter Description Practice Location Reason(s) For Visit Diagnoses Date Provider Providers Copied on Encounter [facility], [address] [place] [address] [address], [place], [place], [id number], [place] tel:[phone] SEC [facility] No Information 8 8 Nidia Caceres. [address] [place], [place], [facility], . tel:[phone] Referring Provider: Morris [place], [address] [place], [place], [facility]. tel:[phone] [facility], [address] [place] [address] [address], [place], [place], [id number], [place] tel:[phone] SEC [facility] No Information 9-200 8 Ana Maria Muller. [address], [place], [place], [facility], [place]. tel:[phone] Office/outpat ient Visit, Est [facility], [address] [place] [address] [address], [place], [place], [id number], [place] tel:[phone] SEC [facility] No Information 7 Nidia Caceres. [address] [place], [address], [place]. tel:[phone] Family History Family Member Type Diagnosis Age At Onset No Information Payers Payer name Insurance type Covered alliance party ID Ayaka matute(s) [facility] Commercial CI [id number] Social History Type Description Quantity Date Captured [...]
--- OUTSIDE RECORDS SUMMARY | 2024-07-15 16:09 | XMS_ITS | Clinical Summary ---
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
== END 2024-07-15 13:58 | disposition home or self-care (01) ==
LOC: CHSIMG 13:58
PROVIDERS: PCP Internal Medicine; Visit Provider Nurse Practitioner Family
DX: M54.50 Low back pain, unspecified (principal); M43.06 Spondylolysis, lumbar region
CPT/HCPCS: 72100

== ENCOUNTER 2024-07-19 09:25 | Outpatient (RCR) | payer MEDICARE, SELFPAY ==
--- NOTE | 2024-08-01 07:57 | OPREHPOC ---
Outpatient Therapy Plan of Care This is a Multidisciplinary Plan of Care that may contain components documented by all disciplines (PT, OT, and ST.) PT Problem 1 PT Problem #1 Knowledge Deficit PT Goal 1 Goal / Goal Update 1. independent and compliant with HEP Target Visit 2 PT Problem 2 PT Problem #2 Pain PT Goal 1 Goal / Goal Update 1. patient to maintain no pain in the lower back for the next 2 weeks Target Visit 2
--- NOTE | 2024-08-01 07:57 | PTOPEVAL1 ---
Assessment and note entered by JT File, PT Evaluation Information Assessment Status Evaluation ICD-10 Condition Codes (PT) Pain in low back M54.50 Onset 07/06/24 Subjective Information patient reports she had a flare up of pain in the lower back about a week or two ago. she reports she woke up with pain, but does not recall any injury. she is feeling much better now after having been on an oral steroid for about 4 days. she reports when her pain began, she had pain all the time with any movement. she reports she feels fine now. Assessment PT Clinical Summary mrs. dsouza is a 79 yo woman who presents to skilled PT services for evaluation and treatment of acute lower back pain. she presents today with resolution of all symptoms from her medications. she does display weakness of the LE's, decreased lumbar rom, and mm tightness in the hips. she likely had an acute flare up of DDD. given she is now symptom free, she will follow up with PT just once more to evaluate if any symptoms have returned or if there is a need for continued therapy after that. Plan of Care Interventions Gait Training,Manual Therapy,Neuro Re-education, Patient/Caregiver Education,Therapeutic Activities ,Therapeutic Exercise PT Services Indicated Yes Treatment Frequency and 1x follow up in 2 weeks Duration These treatments will address the objective and functional deficits as defined above. The patient will be advanced safely and appropriately in order for the patient to progress towards his/her prior level of function. Additional exercises will be introduced and as well as a comprehensive home exercise program upon discharge, if needed, ?to ensure carryover of functional gains achieved in the clinic. This treatment plan has been reviewed and agreement upon by the patient.
--- NOTE | 2024-08-02 10:00 | OPREHPOC ---
Outpatient Therapy Plan of Care This is a Multidisciplinary Plan of Care that may contain components documented by all disciplines (PT, OT, and ST.) PT Problem 1 PT Problem #1 Knowledge Deficit PT Goal 1 Goal / Goal Update 1. independent and compliant with HEP Target Visit 2 Progress Met PT Problem 2 PT Problem #2 Pain PT Goal 1 Goal / Goal Update 1. patient to maintain no pain in the lower back for the next 2 weeks Target Visit 2 Progress Met
--- NOTE | 2024-08-02 10:00 | PTOPDC ---
Assessment and note entered by JT File, PT Evaluation Information Assessment Status Discharge ICD-10 Condition Codes (PT) Pain in low back M54.50 Onset 07/06/24 Subjective Information patient reports she feels Great today. she reports she has had no pain in the last 2 weeks. she reports she has been compliant with her exercises at home, but still has to work on the squat mechanics. Reported Pain Level Pain Score 0: Self Report Assessment PT Clinical Summary mrs. dsouza presents to skilled PT 2 weeks after her initial evaluation. she continues to have no pain, and displays slight rom improvements and full strength of the LE's. she has met all goals for skilled PT, and does not need to continue at this time. she will DC skilled PT today, and continue with HEP independent at home. Plan of Care PT Services Indicated Yes
== END 2024-08-02 10:21 | disposition home or self-care (01) ==
LOC: CHSPT 09:25
PROVIDERS: PCP Internal Medicine; Visit Provider Nurse Practitioner Family
DX: M54.50 Low back pain, unspecified (principal)
CPT/HCPCS: 97110; 97161

== ENCOUNTER 2024-10-10 11:33 | Outpatient (CLI) | payer MEDICARE, SELFPAY ==
--- OUTSIDE RECORDS SUMMARY | 2024-10-10 11:38 | XMS_ITS | Continuity of Care Document ---
Author Organization [facility] Address [address] [place] [address] [address] [place] [address] Phone Care Team Providers Care Pharmaceutical Operator Name Role Phone Morris Jacob Unavailable Unavailable Procedures Procedure Date Eye Exam Established Pt Eye Exam Established Pt Office/outpatient Visit, Est Advance Directives Directive Yes / No Effective Date File Name No Information Encounters Encounter Description Practice Location Reason(s) For Visit Diagnoses Date Provider Providers Copied on Encounter [facility], [address] [place] [address] [address], [place], [place], [id number], [place] tel:[phone] SEC [facility] No Information 8 8 Nidia Caceres. [address] [place], [place], [facility], . tel:[phone] Referring Provider: Morris Hampton, [address] [place], [place], [facility]. tel:[phone] [facility], [address] [place] [address] [address], [place], [place], [id number], [place] tel:[phone] SEC [facility] No Information 9-200 8 Ana Maria Muller. [address], [place], [place], [facility], [place]. tel:[phone] Office/outpat ient Visit, Est [facility], [address] [place] [address] [address], [place], [place], [address], [place] tel:[phone] SEC [facility] No Information 7 Nidia Caceres. [address] [place], [address], [place]. tel:[phone] Family History Family Member Type Diagnosis Age At Onset No Information Payers Payer name Insurance type Covered constitution party ID Ayaka matute(s) [facility] Commercial CI [id number] Social History Type Description Quantity Date Captured [...]
--- OUTSIDE RECORDS SUMMARY | 2024-10-10 11:38 | XMS_ITS | Data Portability ---
Author Organization [place] [facility], Main Office Address [address] [place] [address] Care Team Providers Care Store Worker Name Role Phone SHENG BARRY Primary Care Provider [phone] SHENG BARRY Referring Provider [phone] Assessment Encounter Date Assessment Date Assessment LastModified by Organization Details LastModified Time 09/04/2023 09/04/2023 This note is dictated and transcribed by [employer]. Associate Media Director variances may occur. Despite proofreading, typographical errors may occur. Occasional wrong-word or 'dkvys-n-mckq' substitutions may have occurred due to the inherent limitations of voice recording. Read the chart carefully and recognize, using context, where substitutions have occurred. Not available 09/20/2023 09:37:00 12/04/2023 12/04/2023 This note is dictated and transcribed by [employer]. Associate Media Director variances may occur. Despite proofreading, typographical errors may occur. Occasional wrong-word or 'gnhnm-u-besx' substitutions may have occurred due to the inherent limitations of voice recording. Read the chart carefully and recognize, using context, where substitutions have occurred. Not available 12/04/2023 12:44:37 03/04/2024 03/04/2024 This note is dictated and transcribed by [employer]. Associate Media Director variances may occur. Despite proofreading, typographical errors may occur. Occasional wrong-word or 'spezq-b-qnez' substitutions may have occurred due to the inherent limitations of voice recording. Read the chart carefully and recognize, using context, where substitutions have occurred. Not available 03/04/2024 13:51:57 07/04/2024 07/04/2024 This note is dictated and transcribed by [employer]. Associate Media Director variances may occur. Despite proofreading, typographical errors may occur. Occasional wrong-word or 'totdb-u-sbht' substitutions may have occurred due to the inherent limitations of voice recording. Read the chart carefully and recognize, using context, where substitutions have occurred. [email or web address] Not available 07/04/2024 18:08:13 09/30/2024 09/30/2024 This note is dictated and transcribed by [employer]. Associate Media Director variances may occur. Despite proofreading, typographical errors may occur. Occasional wrong-word or 'pgcky-c-ljjc' substitutions may have occurred due to the inherent limitations of voice recording. Read the chart carefully and recognize, using context, where substitutions have occurred. Not available 09/30/2024 15:39:00 Plan of Treatment Reminders Order Date Submit Date Provider Last Modified By Organization Details Last Modified Time Details Appointments Establish ed Patient 15 2024 11:15A M Zachary Jane DPM Not available Not available Not available Lab None recorded. Referral None recorded. Procedures None recorded. Surgeries None recorded. Imaging None recorded. Medication Orders None recorded. Patient TargetsNo targets recorded. Patient InstructionsNo instructions recorded. Reason for Referral None Reported. Problems Name Problem SNOMED Code Status Onset Date Resolution Date Notes Provider Name and Address Organization Details Recorded Time Osteoarthriti s 692268271 Active Not Available [facility] 3 20:02:57 Bunion 849355519 Active 2019 Not Available [facility] 3 20:02:57 Diabetes mellitus 36774731 Active 2019 Not Available [facility] 3 20:02:57 Dystrophia unguium 42271435 Active 2022 Zachary Jane DPM [address], [address], [place], [address] , [facility] [employer] 3 14:39:34 Bunion 347744488 Active 2022 Zachary Jane DPM [address], [address], [place], [address] , [facility] [employer] 4 11:49:25 Hammer toe 833545427 Active 2022 Zachary Jane DPM [address], [address], [place], [address] , [facility] [employer] 3 14:40:17 Problem Notes None recorded. Procedures Surgical History Date Name Laterality Status Provider Name and Address Organization Details Recorded Time 4 Nail Debridement completed Zachary Jane DPM [address], [address], [place], [address], [employer] 03/04/2024 13:51:46 4 Nail Debridement completed Zachary Jane DPM [address], [address], [place], [address], [employer] [facility] [employer] 12/04/2023 12:44:29 4 Nail Debridement completed Zachary Jane DPM [address], [address], [place], [address], [employer] [place] [employer] 09/04/2023 15:17:11 4 Nail Debridement completed Zachary Jane DPM [address], [address], [place], [address], [employer] [facility] 05/29/2023 11:49:13 3 Nail Debridement completed Zachary Jane DPM [address], [address], [place], [address], [employer] [facility] 02/27/2023 12:43:07 3 Nail Debridement completed Zachary Jane DPM [address], [address], [place], [address], [employer] [facility] 11/28/2022 12:40:12 3 Nail Debridement completed Zachary Jane DPM [address], [address], [place], [address], [employer] 08/29/2022 14:35:57 Imaging Results None recorded. Procedure [...] Available Not Available Not Available amoxicillin 875 mg-j luismagdy chase clavulanate 125 mg tablet TAKE 1 TABLET [...] % 123 mm[Hg] 73 mm[Hg] Katie Calzada [place] [employer] 4 11:47:48 Date Recorded Body height Body mass index (BMI) Body weight Heart rate Respiratory rate Body temperature Oxygen saturation Oxygen saturation in Arterial blood by Pulse oximetry Systolic blood pressure Diastolic blood pressure Provider Name and Address Organization Details Last Updated DateTime 4 160.02 cm 30.1 kg/m2 95304.7 g 83 /min 14 /min 97.8 [degF] 98 % 98 % 120 mm[Hg] 80 mm[Hg] Telma Solares [employer] 4 11:51:09 Date Recorded Body height Body mass index (BMI) Body weight Heart rate Respiratory rate Oxygen saturation Oxygen saturation in Arterial blood by Pulse oximetry Systolic blood pressure Diastolic blood pressure Provider Name and Address Organization Details Last Updated DateTime 4 160.02 cm 30.1 kg/m2 43899.7 g 89 /min 14 /min 98 % 98 % 136 mm[Hg] 69 mm[Hg] Katie Case [facility] [place] [facility] 4 11:38:44 Date Recorded Body height Body mass index (BMI) Body weight Heart rate Respiratory rate Oxygen saturation Oxygen saturation in Arterial blood by Pulse oximetry Systolic blood pressure Diastolic blood pressure Provider Name and Address Organization Details Last Updated DateTime 5 160.02 cm 30.1 kg/m2 30649.7 g 99 /min 14 /min 98 % 98 % 100 mm[Hg] 63 mm[Hg] Katie Calzada [facility] [employer] [facility] 5 17:15:35 Date Recorded Body height Body mass index (BMI) Body weight Heart rate Respiratory rate Oxygen saturation Oxygen saturation in Arterial blood by Pulse oximetry Systolic blood pressure Diastolic blood pressure Provider Name and Address Organization Details Last Updated DateTime 5 160.02 cm 30.1 kg/m2 90039.7 g 92 /min 14 /min 98 % 98 % 148 mm[Hg] 76 mm[Hg] Katie Calzada [facility] [employer] [facility] 5 14:50:06 Social History None recorded. Functional Status None recorded. Mental Status None recorded. Family History Relationship Description Onset Age of this Age Resolved Age Notes LastModified by Organization Details LastModified Time Father Diabetes mellitus [email or web address] Not available 11/19 11:51:50 Medical History Condition Response DIABETES, TYPE Y HYPERTENSION Y HIGH CHOLESTEROL / HYPERLIPIDEMIA Y Gynecological HistoryNo gynecological history recorded. Obstetrics History GPAL:G 0 P 0 0 0 0 Past Encounters Encounter ID Performer Location Encounter Start Date Encounter Closed Date Diagnosis/Indication Diagnosis SNOMED-CT Code Diagnosis ICD10 Code Diagnosis Note [id number] [facility] [place] [address] [place] [address] 10/26/2020 00:00:00 10/27/2020 16:42:57 [id number] [facility] [place] [address] [place] [address] 09/23/2021 00:00:00 09/25/2021 12:34:01 [id number] [facility] [place] [address] [place] [address] 12/27/2021 00:00:00 12/28/2021 10:37:32 [id number] [facility] Pod[facility] [place] [address] [place] [address] 04/04/2022 00:00:00 04/05/2022 10:53:54 [id number] Zachary Jane DPM [facility] [place] [address] [place] [address] 08/29/2022 12:30:17 08/29/2022 14:45:11 Diabetes mellitus 89612830 E11.9 Patient educated on neuropathy , diabetes, diabetic diet, and daily foot exams. Patient is to check feet daily for new wounds, blisters, redness to prevent infection and ulceration s to the feet. Patient will return to clinic in 3 months for diabetic foot workup. Dystrophia unguium 45074 009 L60.3 Nails 1 through 10 were debrided with sharp mechanical debridemen t without incident. Nails were debrided and greater than 50% length and thickness where needed. Bunion 724701804 M21.61 1 M21.612 educated on conservati ve and surgical treatments Patient elects to continue with conservati ve therapyRec ommend wide style shoes Hammer toe 139620078 M20 .41 M20.42 as above [id number] Zachary Jane DPM [facility] Podiatry [place] [address] [place] [address] 11/28/2022 12:35:24 11/28/2022 14:59:58 Diabetes mellitus 33802207 E11.9 Continue diabetic control per PCPCheck feet daily for wounds infectionC ontinue supportive shoe gearFollow -up in 3 months Dystrophia unguium 08538 009 L60.3 Nails 1 through 10 were debrided with sharp mechanical debridemen t without incident. Nails were debrided and greater than 50% length and thickness where needed. [id number] Zachayr Jane DPM [facility] Podiatry [place] [address] [place] [address] 02/27/2023 12:31:40 02/28/2023 15:24:52 Diabetes mellitus 14046181 E11.9 Continue diabetic control per PCPCheck feet daily for wounds infectionC ontinue supportive shoe gearFollow -up in 3 months Dystrophia unguium 71591 009 L60.3 Nails 1 through 10 were debrided with sharp mechanical debridemen t without incident. Nails were debrided and greater than 50% length and thickness where needed. Hammer toe 920395096 M20 .41 M20.42 as above Bunion 438135797 M21.61 1 M21.612 educated on conservati ve and surgical treatments Patient elects to continue with conservati ve therapyRec ommend wide style shoes [id number] Zachary Jane DPM [facility] [place] [address] [place] [address] 05/29/2023 11:39:06 05/29/2023 11:59:23 Diabetes mellitus 16197157 E11.9 Continue diabetic control per PCPCheck feet daily for wounds infectionC ontinue supportive shoe gearFollow -up in 3 months Bunion 191899854 M21.61 1 M21.612 educated on conservati ve and surgical treatments Patient elects to continue with conservati ve therapyRec ommend wide style shoes Hammer toe 052550899 M20 .41 M20.42 as above Dystrophia unguium 18138 009 L60.3 Nails were debrided without incident [id number] Zachary Jane DPM [facility] [place] [address] [place] [address] 09/04/2023 11:39:59 09/20/2023 11:12:00 Diabetes mellitus 66484557 E11.9 Continue diabetic control per PCPCheck feet daily for wounds infectionC ontinue supportive shoe gearFollow -up in 3 months Dystrophia unguium 35685 009 L60.3 Nails were debrided without incident [id number] Zachary Jane DPM [facility] [place] [address] [place] [address] 12/04/2023 11:28:33 12/06/2023 10:58:46 Diabetes mellitus 36265910 E11.9 Continue diabetic control per PCPCheck feet daily for wounds infectionC ontinue supportive shoe gearFollow -up in 3 months Dystrophia unguium 29521 009 L60.3 Nails were debrided without incident Bunion 575812273 M21.61 1 M21.612 educated on conservati ve and surgical treatments Patient elects to continue with conservati ve therapyRec ommend wide style shoesdenie s surgery [id number] Zachary Jane DPM [facility] [place] [address] [place] [address] 03/04/2024 11:35:24 03/05/2024 14:44:06 Diabetes mellitus 71001657 E11.9 Continue diabetic control per PCPCheck feet daily for wounds infectionC ontinue supportive shoe gearFollow -up in 3 months Dystrophia unguium 37704 009 L60.3 Nails were debrided without incident Bunion 687784750 M21.61 1 M21.612 educated on conservati ve and surgical treatments Patient elects to continue with conservati ve [facility]Rec [facility] shoesdenie s surgery [id number] Zachary Jane DPM [facility] [place] [address] [place] [address] 07/04/2024 16:25:41 07/09/2024 13:28:42 Diabetes mellitus 86911826 E11.9 Continue diabetic control per PCPCheck feet daily for wounds infectionC ontinue supportive shoe gearFollow -up in 3 months Dystrophia unguium 03731 009 L60.3 Nails were debrided without incident [id number] Zachary Jane DPM [facility] [place] [address] [place] [address] 09/30/2024 14:43:44 10/01/2024 15:33:37 Diabetes mellitus 56340442 E11.9 Continue diabetic control per PCPCheck feet daily for wounds infectionC ontinue supportive shoe gearFollow -up in 3 months Dystrophia unguium 55193 009 L60.3 Nails were debrided without incident Health Concerns Section Related Observation LastModified by Organization Detai ls LastModified Time None Recorded Concern Status LastModified by Organization Details LastModified Time None Recorded Advance Directives Directive None Recorded Payers Encounter Date Sequence Insurance Name Policy Number Policy Sow Covered Member ID Sow Member ID Guarantor Name 09/04/2023 1 [place] Karen J Orlando [id number] Karen Orlando 09/04/2023 2 [employer]ORS CHOICE (SECONDARY TO MEDICARE) Karen Orlando [id number] Karen Orlando 12/04/2023 1 [place] Karen J Orlando [id number] Karen Orlando 12/04/2023 2 [employer] - SENIORS CHOICE (SECONDARY TO MEDICARE) Karen Orlando [id number] Karen Orlando 03/04/2024 1 [place] Karen J Orlando [id number] Karen Orlando 03/04/2024 2 [employer] - SENIORS CHOICE (SECONDARY TO MEDICARE) Karen Orlando [id number] Karen Orlando 07/04/2024 1 [place] Karen J Orlando [id number] Karen Orlando 07/04/2024 2 [employer] - SENIORS CHOICE (SECONDARY TO MEDICARE) Karen Orlando [id number] Karen Orlando 09/30/2024 1 [place] Karen J Orlando [id number] Karen Orlando 09/30/2024 2 [employer] - SENIORS CHOICE (SECONDARY TO MEDICARE) Karen Orlando [id number] Karen Orlando Notes Date Note Type Note Provider Name and Address Organization Details Recorded Time 09/04/2023 text/html Patient is a 78-year-old female diabetic who returns to the office for diabetic foot care. Patient states that she has continued bunions and hammertoes but denies any open wounds or infection. Patient states her diabetes has been doing well. Patient denies any numbness or tingling in the feet. Patient denies any other complaints. Zachary Jane DPM [address], [place], [address], tidy 09/20/2023 09:37:18 12/04/2023 text/html . Patient is [...] denies any other complaints. Zachary Jane DPM [address], [place], [address], tidy 12/04/2023 12:45:12 03/04/2024 text/html . Patient is a 79-year-old female who returns for follow-up on diabetic foot care she is doing well she denies any open wounds or infection she does have chronic bunions which she states are not painful when do not cause her any issues. Patient denies any other complaints. Zachary Jane DPM [address], [place], [address], tidy 03/04/2024 13:52:17 07/04/2024 text/html . Patient is a 79-year-old female diabetic she returns the office for routine diabetic foot care she states overall she is doing well he denies any new complaints. Patient denies any foot pain or walking she denies any open wounds or intermittent claudication. Zachary Jane DPM [address], [place], [address], tidy 07/04/2024 18:08:25 09/30/2024 text/html . Patient is a 79-year-old female diabetic she returns for routine diabetic foot care she states overall she is doing well denies any open wounds or injury the foot. Patient would like her nails cut. Patient denies any other complaints. Zachary Jane, S[facility] [address] [facility] [facility], [place], [address], [facility] [employer] [facility] 09/30/2024 15:45:08 OBGyn Episode No OBEpisode recorded.
[2024-10-10 12:07] LABS: Anion Gap 6 mmol/L (4-12); Blood Urea Nitrogen 22 mg/dL (7-17); Calcium 9.3 mg/dL (8.4-10.2); Carbon Dioxide 31 mmol/L (22-30); Chloride 101 mmol/L (98-107); Estimated Glomerular Filt Rate 58; Glucose 155 mg/dL (65-110); Osmolality Calculated 292 mOsm/kg (285-295); Potassium 4.8 mmol/L (3.4-5.0); Sodium 138 mmol/L (137-145)
[2024-10-10 12:25] LABS: Free T4 Free Thyroxine 1.45 ng/dL (0.78-2.19)
[2024-10-10 13:06] LABS: Free T3 3.08 pg/mL (2.18-3.98)
== END 2024-10-10 11:34 | disposition home or self-care (01) ==
PROVIDERS: PCP Internal Medicine; Visit Provider Internal Medicine
DX: I10 Essential (primary) hypertension (principal); E03.4 Atrophy of thyroid (acquired)
CPT/HCPCS: 36415; 80048; 84439; 84443; 84481

== ENCOUNTER 2024-12-19 10:57 | Outpatient (CLI) | payer MEDICARE, SELFPAY ==
--- OUTSIDE RECORDS SUMMARY | 2024-12-19 11:06 | XMS_ITS | Continuity of Care Document ---
Author Organization [facility] Address [address] [place] [address] [address] [place] [address] Phone Care Team Providers Care Lay Out Inspector Name Role Phone Morris Jacob Unavailable Unavailable Procedures Procedure Date Eye Exam Established Pt Eye Exam Established Pt Office/outpatient Visit, Est Advance Directives Directive Yes / No Effective Date File Name No Information Encounters Encounter Description Practice Location Reason(s) For Visit Diagnoses Date Provider Providers Copied on Encounter [facility], [address] [place] [address] [address], [place], [place], [address], [place] tel:[phone] SEC [facility] No Information 8 8 N[address]ace[address]. [address] [place], [place], [facility], . tel:[phone] Referring Provider: Morris Hampton, [address] [place], [place], [facility]. tel:[phone] [facility], [address] [place] [address] [address], [place], [place], [address], [place] tel:[phone] SEC [facility] No Information 9-200 8 Ana Maria Muller. [address], [place], [place], [facility], [place]. tel:[phone] Office/outpat ient Visit, Est [facility], [address] [place] [address] [address], [place], [place], [address], [place] tel:[phone] SEC [facility] No Information 7 N[address]ace[address]. [address] [place], [address], [place]. tel:[phone] Family History Family Member Type Diagnosis Age At Onset No Information Payers Payer name Insurance type Covered republican ID Ayaka matute(s) [facility] Commercial CI [id number] Social History Type Description Quantity Date Captured [...]
[2024-12-19 11:09] LABS: Add Urine Microscopic? YES; Appearance Urine Clear (Clear); Glucose Urine UA Negative (Negative); Hematocrit 38.9 % (35.0-42.0); Hemoglobin 12.9 g/dL (11.7-13.8); Immature Granulocyte Percent A 0.3 % (0.0-0.0); Leukocyte Esterase Ur Trace LEU/UL (Negative); Lymphocytes Absolute Auto 2.17 K/mm3 (1.10-4.50); Mean Corpuscular HGB Conc 33.2 g/dL (32-36); Mean Corpuscular Hemoglobin 28.9 pg (27.0-31.0); Mean Corpuscular Volume 87.2 fL (78.0-102.0); Nitrate Urine Positive (Negative); Nucleated Red Blood Cells Absolute Auto 0.00 K/mm3 (0.00-0.00); Nucleated Red Blood Cells Perc 0.0 % (0-0.0); Platelet Count Result 261 K/mm3 (150-420); Red Blood Count 4.46 M/mm3 (4.20-5.40); Specific Grav Ur 1.010 (1.010-1.020); White Blood Count 7.5 K/mm3 (4.8-10.8)
[2024-12-19 11:18] LABS: Hemoglobin A1C 6.1 % (<5.7)
[2024-12-19 11:23] LABS: MALB Creatinine Ratio 33.3 mg/g (0-30)
[2024-12-19 12:19] LABS: Alanine Aminotransferase 20 U/L (6-35); Albumin Level 4.6 g/dL (3.5-5.1); Alkaline Phosphatase 60 U/L (38-126); Anion Gap 8 mmol/L (4-12); Aspartate Amino Transferase 27 U/L (14-36); Bilirubin,Total 0.5 mg/dL (0.2-1.3); Blood Urea Nitrogen 24 mg/dL (7-17); Calcium 9.7 mg/dL (8.4-10.2); Carbon Dioxide 28 mmol/L (22-30); Chloride 101 mmol/L (98-107); Cholesterol 153 mg/dL (0-200); Creatine Kinase 54 U/L (30-135); Estimated Glomerular Filt Rate 54; Glucose 108 mg/dL (65-110); HDL Direct 70 mg/dL; Osmolality Calculated 289 mOsm/kg (285-295); Potassium 4.4 mmol/L (3.4-5.0); Sodium 137 mmol/L (137-145); Total Protein 6.7 g/dL (6.3-8.2); Triglycerides 127 mg/dL (<150)
[2024-12-19 12:34] LABS: Free T4 Free Thyroxine 1.20 ng/dL (0.78-2.19)
[2024-12-19 12:47] LABS: Thyroid Stimulating Hormone 2.930 uIU/mL (0.465-4.680)
== END 2024-12-19 10:58 | disposition home or self-care (01) ==
LOC: CHSLAB 10:58
PROVIDERS: PCP Internal Medicine; Visit Provider Internal Medicine
DX: E78.2 Mixed hyperlipidemia (principal); I10 Essential (primary) hypertension; N39.0 Urinary tract infection, site not specified; E11.65 Type 2 diabetes mellitus with hyperglycemia; E03.4 Atrophy of thyroid (acquired)
CPT/HCPCS: 36415; 80053; 80061; 81001; 82043; 82550; 83036; 84439; 84443; 85025

== ENCOUNTER 2025-01-14 08:31 | Outpatient (CLI) | payer MEDICARE, SELFPAY ==
--- OUTSIDE RECORDS SUMMARY | 2008-05-08 08:15 | XMS_ITS | Continuity of Care Document ---
Author Organization [facility] Address [address] [place] [address] [address] [place] [address] Phone Care Team Providers Care Farmhand Name Role Phone Morris Jacob Unavailable Unavailable Procedures Procedure Date Eye Exam Established Pt Eye Exam Established Pt Office/outpatient Visit, Est Advance Directives Directive Yes / No Effective Date File Name No Information Encounters Encounter Description Practice Location Reason(s) For Visit Diagnoses Date Provider Providers Copied on Encounter [facility], [address] [place] [address] [address], [place], [place], [id number], [place] tel:[phone] SEC [facility] No Information 8 8 Nidia Caceres. [address] [place], [place], [facility], . tel:[phone] Referring Provider: Morris Hampton, [address], [place], [facility]. tel:[phone] [facility], [address] [place] [address] [address], [place], [place], [id number], [place] tel:[phone] SEC [facility] No Information 9-200 8 Ana Maria Muller. [address], [place], [place], [facility], [place]. tel:[phone] Office/outpat ient Visit, Est [facility], [id number] [place] [address] [address], [place], [place], [id number], [place] tel:[phone] SEC [facility] No Information 7 Nidia Caceres. [address] [place], [address], [place]. tel:[phone] Family History Family Member Type Diagnosis Age At Onset No Information Payers Payer name Insurance type Covered democrat ID Ayaka matute(s) [facility] Commercial CI [id number] Social History Type Description Quantity Date Captured Comments Sex Female Smoking Status No Information Chief Complaint And Reason For Visit No Information Reason For Referral Reason For Referral No Information History Of Present Illness Encounter Date Complaint History Of Prese nt Illness No Information Functional Status Date Functional Assessmen t No Information Instructions Date Instruction Additional Infor mation No Information Assessments Type Assessment Date No Information Patient Care Teams Name Effective Dates (start - stop) Status Members No Information
--- NOTE | ~2025-01-14 | US_ITS ---
EXAMINATION: US carotid duplex BI DATE: 01/14/2025 08:53 INDICATION: Right carotid bruit TECHNIQUE: Grayscale, color Doppler, and pulsed Doppler images of the cervical carotid arteries were obtained. The degree of vessel stenosis is placed in one of the following categories: normal, <50%, 50-69%, >=70% but less than near- occlusion, near-occlusion, or total occlusion. Note that percent stenosis relative to normal distal artery lumen diameter is indirectly measured from velocity measurements as described by Rangel, et al. Radiology 2003; 229:340-346. Notes: Normal: Peak systolic velocity <125 centimeters/sec and no plaque <50%. Peak systolic velocity <125 (EDV <40; ICA/CCA PSV ratio <2.0; used these factors only a tandem lesions or low cardiac output or contralateral disease) 50-69 %: PSV 125-230 (EDV 40-100; ratio 2-4) >= 70% but less than near occlusion: PSV greater than 230 (EDV > 100; ratio> 4.0) Near Occlusion: PSV that is variable; markedly narrowed lumen Occlusion: Absent flow on color/spectral Doppler and no lumen on santoyo scale. COMPARISON: None. FINDINGS: RIGHT: The right common carotid artery (CCA) peak systolic velocity (PSV) is 74 cm/s. The right internal carotid artery (ICA) PSV is 80 cm/s. The right ICA end- diastolic velocity (EDV) is 25 cm/s. The right ICA/CCA PSV ratio is 1.1. The external carotid artery (ECA) PSV is 64 cm/s. There is antegrade flow in the right vertebral artery. LEFT: The left CCA PSV is 62 cm/s. The left ICA PSV is 128 cm/s. The left ICA EDV is 30 cm/s. The left ICA/CCA PSV ratio is 2.1. The ECA PSV is 98 cm/s. There is antegrade flow in the left vertebral artery. IMPRESSION: 1. Less than 50% stenosis in the right internal carotid artery by sonographic criteria. 2. 50-69% stenosis in the left internal carotid artery by sonographic criteria. Reviewed, dictated and finalized at location O. IMPRESSION: 1. Less than 50% stenosis in the right internal carotid artery by sonographic c riteria. 2. 50-69% stenosis in the left internal carotid artery by sonographic criteria.
--- OUTSIDE RECORDS SUMMARY | 2025-01-14 08:39 | XMS_ITS | Clinical Summary ---
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 Gender Identity Not on file Sexual Orientation Not on file Plan of Treatment Health Maintenance Due Date Last Done Comments Hepatitis C 01/26/1963 DTaP, Tdap and Td Vaccines ( 1 - Tdap) 1965 Pneumococcal Vaccine: 50+ Ye ars (1 of 1 - PCV) 01/26/1996 Zoster Vaccines (1 of 2) 01/26/1996 Annual Medicare Wellness Visit 2011 Dexa Scan (General) 2011 RSV Immunization or 60+ Years (1 - 1-dose 75+ series) 2021 COVID-19 Vaccine (1 - 2023-2 5 season) 2024 Meningococcal B Vaccine Aged Out No l onger eligible based on patient's age to complete this topic Meningococcal Vaccine Aged Out No harinder arnulfo eligible based on patient's age to complete this topic RSV Immunizations Under 20 Months Aged Out No longer eligible based on patient's age to complete this topic Insurance [facility] MEDICARE
== END 2025-01-14 08:32 | disposition home or self-care (01) ==
LOC: CHSIMG 08:33
PROVIDERS: PCP Internal Medicine; Visit Provider Internal Medicine
DX: R01.1 Cardiac murmur, unspecified (principal); R09.89 Other specified symptoms and signs involving the circulatory and respiratory systems; I65.23 Occlusion and stenosis of bilateral carotid arteries
CPT/HCPCS: 93880

== ENCOUNTER 2025-01-16 10:01 | Outpatient (RCR) | payer MEDICARE, SELFPAY ==
--- NOTE | 2025-01-16 11:01 | OPREHPOC ---
Outpatient Therapy Plan of Care This is a Multidisciplinary Plan of Care that may contain components documented by all disciplines (PT, OT, and ST.) PT Problem 1 PT Problem #1 Knowledge Deficit PT Goal 1 Goal / Goal Update Independent and compliant with HEP. Target Visit 2 PT Problem 2 PT Problem #2 Impaired Strength PT Goal 1 Goal / Goal Update Pt to improve gross LE strength to 5/5 bilaterally . Target Visit 12 PT Problem 3 PT Problem #3 Impaired Flexibility PT Goal 1 Goal / Goal Update Pt to demonstrate moderate tightness of bilateral piriformis mm. Pt to demonstrate -30 of bilateral hamstrings in 90/90 position. Target Visit 12 PT Problem 4 PT Problem #4 Impaired Functional Mobility PT Goal 1 Goal / Goal Update Pt to note improved sleep quality. Pt to report 20% reduction in perceived disability on Oswestry. Pt to report no more than 6/10 pain when waking from sleep. Pt to report no more than 3/10 pain when walking. Target Visit 12
--- NOTE | 2025-01-16 11:01 | PTOPEVAL1 ---
Assessment and note entered by Elisa Bernbae, PT Evaluation Information Assessment Status Evaluation ICD-10 Condition Codes (PT) Pain in low back M54.50 Other ICD-10 Condition Codes ( M54.42 PT) Onset 07/19/2024 Subjective Information Pt reports she feels like she has sciatica. She reports her pain is worse in the mornings after waking up, however today she took some Excedrin and does not currently have any pain. She reports she never feels any pain in her low back but instead feels it in her buttock down to her mid- thigh primarily but it can go down to her foot. Walking and standing upon getting out of a chair make the pain worse. She denies numbness and tingling down the leg. She has not had any imaging of her low back. Reported Pain Level Pain Score 0: Self Report Assessment PT Clinical Summary Mrs. Abdi is a 79 yo female presenting for skilled PT evaluation for radicular symptoms down the L leg. She denies back pain and her radicular symptoms originate in the buttock and radiate down to the mid thigh and occasionally to the foot. Slump test was positive for lumbar radiculopathy however pt had no pain with active lumbar flexion/ extension and no pain with PAs to the lumbar spine . She demonstrates severe hip mm and hamstring mm tightness bilaterally as well as LE weakness (L>R) . Tenderness is also noted with deep palpation to the L piriformis mm and reproduction of her symptoms occurs with passive stretching of the L piriformis. Lumbar radiculopathy and piriformis syndrome may both be present. Pt will benefit from skilled PT intervention to address these deficits to allow the pt to stand and walk for prolonged periods and sleep with less pain. Plan of Care Interventions Electrical Stimulation,Gait Training,Hot Pack/Cold Pack,Manual Therapy,Neuro Re-education,Patient/ Caregiver Education,Therapeutic Activities, Therapeutic Exercise,Self-Care/Home Management PT Services Indicated Yes Treatment Frequency and 2x/week for 12 visits Duration These treatments will address the objective and functional deficits as defined above. The patient will be advanced safely and appropriately in order for the patient to progress towards his/her prior level of function. Additional exercises will be introduced and as well as a comprehensive home exercise program upon discharge, if needed, ?to ensure carryover of functional gains achieved in the clinic. This treatment plan has been reviewed and agreement upon by the patient.
--- NOTE | 2025-01-22 11:04 | PCPTNOTE ---
Patient called & cancelled scheduled appointment this date due to not feeling well. -Clarita Palacio, PT
--- NOTE | 2025-02-06 09:37 | PCPTNOTE ---
Cancelled session. Forgot about her appointment.
--- NOTE | 2025-03-04 17:33 | PTOPPROG ---
Assessment and note entered by Marti Bustillo DPT Evaluation Information Assessment Status Progress ICD-10 Condition Codes (PT) Pain in low back M54.50 Other ICD-10 Condition Codes ( M54.42 PT) Onset 07/19/2024 Subjective Information patient reports she has seen some improvement but no a significant amount. she reports that pain is less frequent. she reports she still has difficulty sleeping but does not fully believe it is due to just her back. Assessment PT Clinical Summary Mrs. Abdi has been seen for 10 visits of skilled PT with progress towards goals. She demonstrates improve LE strength and decreased frequency of pain. She continues to have pain with sleeping and daily activities. She would benefit from continued skilled PT to address remaining impairments and return to PLOF. Plan of Care Interventions Electrical Stimulation,Gait Training,Hot Pack/Cold Pack,Manual Therapy,Neuro Re-education,Patient/ Caregiver Education,Therapeutic Activities, Therapeutic Exercise,Self-Care/Home Management PT Services Indicated Yes Treatment Frequency and continue with remaining 2 visits of skilled PT Duration These treatments will address the objective and functional deficits as defined above. The patient will be advanced safely and appropriately in order for the patient to progress towards his/her prior level of function. Additional exercises will be introduced and as well as a comprehensive home exercise program upon discharge, if needed, ?to ensure carryover of functional gains achieved in the clinic. This treatment plan has been reviewed and agreement upon by the patient.
--- NOTE | 2025-03-11 14:00 | OPREHPOC ---
Outpatient Therapy Plan of Care This is a Multidisciplinary Plan of Care that may contain components documented by all disciplines (PT, OT, and ST.) PT Problem 1 PT Problem #1 Knowledge Deficit PT Goal 1 Goal / Goal Update Independent and compliant with HEP. Target Visit 2 Progress Met PT Goal 2 Progress Met PT Problem 2 PT Problem #2 Impaired Strength PT Goal 1 Goal / Goal Update Pt to improve gross LE strength to 5/5 bilaterally . Target Visit 12 Progress Not Met PT Problem 3 PT Problem #3 Impaired Flexibility PT Goal 1 Goal / Goal Update Pt to demonstrate moderate tightness of bilateral piriformis mm. -not met Pt to demonstrate -30 of bilateral hamstrings in 90/90 position. -not met Target Visit 12 Progress Not Met PT Problem 4 PT Problem #4 Impaired Functional Mobility PT Goal 1 Goal / Goal Update Pt to note improved sleep quality. -not met Pt to report 20% reduction in perceived disability on Oswestry. -met Pt to report no more than 6/10 pain when waking from sleep. -met Pt to report no more than 3/10 pain when walking. -not met Target Visit 12 Progress Partially Met
--- NOTE | 2025-03-11 14:00 | PTOPDC ---
Assessment and note entered by Clarita Palacio, PT Evaluation Information Assessment Status Discharge ICD-10 Condition Codes (PT) Pain in low back M54.50 Other ICD-10 Condition Codes ( M54.42 PT) Onset 07/19/2024 Subjective Information Karen Abdi reports her back pain is still off and on. She notes overall she has less frequent pain but yesterday she had severe low back pain rating it a 10/10 for unknown reasons. She reports she could barely walk yesterday but today her pain is only 4/10. She continues to have difficulty sleeping as well. Reported Pain Level Pain Score 4: Self Report Assessment PT Clinical Summary Mrs. Abdi has been seen for 12 visits of skilled PT with progress towards goals. She is reporting a little less pain overall however, she still has days that her pain is debilitating. She has limitations with walking, standing, and sleeping when pain is elevated. She demonstrates ongoing core and hip weakness, decreased lumbar AROM, and decreased functional mobility. She has not met PT goals at this time and is being referred back to her physician. Plan of Care PT Services Indicated Yes
== END 2025-03-11 14:17 | disposition home or self-care (01) ==
LOC: CHSPT 10:01
PROVIDERS: PCP Nurse Practitioner Family; Visit Provider Nurse Practitioner Family
DX: M54.42 Lumbago with sciatica, left side (principal)
CPT/HCPCS: 93306; 97014; 97110; 97112; 97140; 97150; 97161; 97530; 97750; G0283

== ENCOUNTER 2025-01-28 14:47 | Outpatient (CLI) | payer MEDICARE, SELFPAY ==
--- OUTSIDE RECORDS SUMMARY | 2008-05-08 08:15 | XMS_ITS | Continuity of Care Document ---
Author Organization [facility] Address [address] [place] [address] [address] [place] [address] Phone Care Team Providers Care Environmental Management Specialist Name Role Phone Morris Jacob Unavailable Unavailable Procedures Procedure Date Eye Exam Established Pt Eye Exam Established Pt Office/outpatient Visit, Est Advance Directives Directive Yes / No Effective Date File Name No Information Encounters Encounter Description Practice Location Reason(s) For Visit Diagnoses Date Provider Providers Copied on Encounter [facility], [address] [place] [address] [address], [place], [place], [id number], [place] tel:[phone] SEC [facility] No Information 8 8 Nidia Caceres. [address] [place], [place], [facility], . tel:[phone] Referring Provider: Morris Hampton, [address] [place], [facility]. tel:[phone] [facility], [address] [place] [address] [address], [place], [place], [id number], [place] tel:[phone] SEC [facility] No Information 9-200 8 Ana Maria Muller. [address], [place], [place], [facility], [place]. tel:[phone] Office/outpat ient Visit, Est [facility], [id number] [place] [address] [address], [place], [place], [id number], [place] tel:[phone] SEC [facility] No Information 7 Nidia Caceres. [address] [place], [address], [place]. tel:[phone] Family History Family Member Type Diagnosis Age At Onset No Information Payers Payer name Insurance type Covered libertarian ID Ayaka matute(s) [facility] Commercial CI [id number] Social History Type Description Quantity Date Captured [...]
--- NOTE | 2025-01-28 14:52 | ECHO_ITS ---
Patient Info Name: Karen Abdi Age: 80 years : 1945 Gender: Female Ht: 63 in Wt: 166 lbs BSA: 1.85 m2 HR: 86 bpm BP: 160 / 87 mmHg Technical Quality: Good Exam Date: 01/28/2025 3:19 PM Patient Status: O Admit Date: 01/28/2025 Exam Type: CA echo doppler color flow Complete two-dimensional, color flow and Doppler transthoracic echocardiogram is performed. Deckhand: Moni Leyva Attending Provider: Estella Ovalles MD Summary 1. Complete two-dimensional, color flow and Doppler transthoracic echocardiogram is performed. 2. Left ventricular chamber dimension is normal. 3. Left ventricular systolic function is normal, estimated at 65-70. 4. The left ventricular diastolic function is grade I diastolic dysfunction. 5. E/e' 8 is minimally elevated. 6. Left atrial chamber dimension is mildly enlarged. 7. The mitral valve has a mildly calcified annulus. Left Ventricle E/e' 8 is minimally elevated. Left ventricular chamber dimension is normal. Left ventricular systolic function is normal, estimated at 65-70. The left ventricular diastolic function is grade I diastolic dysfunction. Right Ventricle Right ventricular chamber dimension is normal. Right ventricular systolic function is normal and with normal TAPSE 2.5 cm. Left Atria Left atrial chamber dimension is mildly enlarged. Right Atria Right atrial chamber dimension is normal. Aortic Valve The aortic valve is trileaflet. There is no aortic valve stenosis. There is no aortic valve regurgitation. Pulmonic Valve There is no pulmonic regurgitation. Mitral Valve The mitral valve has a mildly calcified annulus. There is no mitral valve stenosis. There is no mitral valve regurgitation. Tricuspid Valve There is no tricuspid valve regurgitation. Pericardium/Pleural There is no pericardial effusion. Inferior Vena Cava Normal inferior vena cava with >50% collapse upon inspiration consistent with normal right atrial pressure, 5 mmHg. Aorta The aortic root size at the sinus of Valsalva is normal. Left Ventricular Outflow Tract Name Value Normal LVOT 2D LVOT Diameter 2.0 cm LVOT Doppler LVOT Peak Velocity 132 cm/s LVOT Peak Gradient 7 mmHg LVOT Mean Gradient 4 mmHg LVOT VTI 29 cm LVOT VTI/AV VTI Ratio 0.8 LVOT Stroke Volume 91 ml LVOT CO 7.9 l/min LVOT CI 4.2 l/min/m2 Pulmonic Valve Name Value Normal RVOT Doppler RVOT Peak Velocity 88 cm/s RVOT Peak Gradient 3 mmHg PV Doppler PV Peak Velocity 112 cm/s PV Peak Gradient 5 mmHg Mitral Valve Name Value Normal MV Doppler MV Peak Gradient 5 mmHg MV Mean Gradient 3 mmHg MV Area (Cont Eq VTI) 3.7 cm2 MV Diastolic Function MV E Peak Velocity 68 cm/s MV A Peak Velocity 109 cm/s MV E/A 0.6 MV Decel Time (PW) 338 ms MV Annular TDI MV E/e' (Septal) 9.1 MV E/e' (Lateral) 7.6 MV E/e' (Average) 8.4 Tricuspid Valve Name Value Normal Estimated PAP/RSVP RA Pressure 5 mmHg <=5 Aortic Valve Name Value Normal AV Doppler AV Peak Velocity 159 cm/s AV Peak Gradient 10 mmHg AV Mean Gradient 6 mmHg AV VTI 35 cm AV Area (Cont Eq VTI) 2.6 cm2 >=3.0 AV Area (Cont Eq Govind) 2.7 cm2 AV DI (Govind) 0.83 AV Regurgitation 2D LVOT Area 3.2 cm2 Ventricles Name Value Normal LV Dimensions 2D/MM IVS Diastolic Thickness (2D) 1.0 cm 0.6-1.0 LVID Diastole (2D) 3.9 cm 3.8-5.2 LVIW Diastolic Thickness (2D) 1.1 cm 0.6-0.9 LVID Systole (2D) 2.5 cm 2.2-3.5 LVOT Diameter 2.0 cm LV Mass (2D Cubed) 136.18 g 67.00-162.00 LV Mass Index (2D Cubed) 73 g/m2 43-95 Relative Wall Thickness (2D) 0.58 <=0.42 LV Fractional Shortening/Ejection Fraction 2D/MM LV Fractional Shortening (2D) 37 % 27-45 LV EF (2D Teichholz) 67 % LV Diastolic Volume (4C MOD) 69 ml LV EF (4C MOD) 73 % LV Diastolic Volume (2C MOD) 67 ml LV EF (2C MOD) 55 % LV Diastolic Volume (BP MOD) 68 ml 46-106 LV Diastolic Volume Index (BP MOD) 36 ml/m2 29-61 LV Systolic Volume (BP MOD) 23 ml 14-42 LV Systolic Volume Index (BP MOD) 13 ml/m2 8-24 LV EF (BP MOD) 65 % 54-74 LV Diastolic Length (4C) 7.7 cm LV Systolic Length (4C) 6.2 cm LV Stroke Volume (4C MOD) 50 ml Atria Name Value Normal LA Dimensions LA Volume (4C A-L) 50 ml LA Volume (BP A-L) 55 ml RA Dimensions RA Systolic Major Jefferson Length (4C) 4.8 cm 2.2-2.8 RA Area (4C) 11.1 cm2 <=18.0 Report Signatures
--- OUTSIDE RECORDS SUMMARY | 2025-01-28 16:16 | XMS_ITS | Clinical Summary ---
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
== END 2025-01-28 14:48 | disposition home or self-care (01) ==
PROVIDERS: PCP Internal Medicine; Visit Provider Internal Medicine
DX: R09.89 Other specified symptoms and signs involving the circulatory and respiratory systems (principal); R01.1 Cardiac murmur, unspecified; I51.9 Heart disease, unspecified; I51.7 Cardiomegaly
CPT/HCPCS: 93306

== ENCOUNTER 2025-03-24 11:30 | Outpatient (CLI) | payer MEDICARE, SELFPAY ==
--- NOTE | ~2025-03-24 | XR_ITS ---
EXAMINATION: XR hip LT min 2V, 03/24/2025 11:20 MACHINE STUFFER HISTORY: L HIP PAIN COMPARISON: No comparisons available. Findings: No acute fracture or malalignment. No significant degenerative changes. Soft tissues unremarkable. Impression: No acute fracture or malalignment. Reviewed, dictated and finalized at location P. INE STUFFER Impression: No acute fracture or malalignment.
--- OUTSIDE RECORDS SUMMARY | 2025-03-24 13:05 | XMS_ITS | Clinical Summary ---
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
== END 2025-03-24 11:31 | disposition home or self-care (01) ==
LOC: CHSIMG 11:32
PROVIDERS: PCP Internal Medicine; Visit Provider Internal Medicine
DX: M54.16 Radiculopathy, lumbar region (principal); M25.552 Pain in left hip
CPT/HCPCS: 73502

== ENCOUNTER 2025-05-19 14:50 | Outpatient (CLI) | payer MEDICARE, SELFPAY ==
--- NOTE | ~2025-05-19 | XR_ITS ---
XR shoulder RT min 2V 05/19/2025 15:12 Indication: Right shoulder pain Procedure: 4 views right shoulder Comparison: 05/04/2023 Findings: Severe glenohumeral joint osteoarthritis. There are multiple loose bodies predominantly in the inferior glenohumeral recess. No acute fracture identified. There are subchondral sclerosis and marginal osteophytosis. Impression: 1: Severe osteoarthritis of the right shoulder with multiple intra-articular loose bodies which may be secondary to osteoarthritis or synovial chondromatosis. Reviewed, dictated and finalized at location O. T AND VEGETABLE PARER Impression: 1: Severe osteoarthritis of the right shoulder with multiple intra-articular lo ose bodies which may be secondary to osteoarthritis or synovial chondromatosis.
--- NOTE | ~2025-05-19 | XR_ITS ---
EXAMINATION: XR clavicle RT DATE: 05/19/2025 15:12 INDICATION: Right shoulder injury TECHNIQUE: AP and cephalad angled AP view of the right clavicle were obtained. COMPARISON: Right shoulder radiographs dated 05/19/2025 FINDINGS: Normal alignment. No fracture.Advanced right glenohumeral osteoarthritis with marginal osteophytes and loose osteochondral bodies projecting over the region of the axillary recess. Mild acromioclavicular osteoarthritis. Severe cervical spondylosis. Visualized portion of the lungs are clear. Soft tissues are unremarkable. IMPRESSION: 1. No acute osseous abnormality. 2. Severe osteoarthritis at the right glenohumeral joint and severe cervical spondylosis. Reviewed, dictated and finalized at location A. ESTATE ANALYST IMPRESSION: 1. No acute osseous abnormality. 2. Severe osteoarthritis at the right glenohumeral joint and severe cervical sp ondylosis.
--- OUTSIDE RECORDS SUMMARY | 2025-05-19 15:07 | XMS_ITS | Clinical Summary ---
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
== END 2025-05-19 14:51 | disposition home or self-care (01) ==
LOC: CHSIMG 14:53
PROVIDERS: PCP Internal Medicine; Visit Provider Internal Medicine
DX: S49.91XA Unspecified injury of right shoulder and upper arm, initial encounter (principal); M43.02 Spondylolysis, cervical region; M19.011 Primary osteoarthritis, right shoulder; M24.011 Loose body in right shoulder
CPT/HCPCS: 73000; 73030